=== PATIENT | female | born 1970 | race Caucasian/White ===

== ENCOUNTER 2024-12-19 21:10 | Inpatient (IN) ==
[2024-12-19 22:00] LABS: BASOPHILS % (AUTO) 0.1 %; HCT - HEMATOCRIT 39.4 % (37.0-47.0); HGB - HEMOGLOBIN 13.3 g/dL (12.0-16.0); LYMPHOCYTES # (AUTO) 0.9 10^3/uL (1.5-3.5); LYMPHOCYTES % (AUTO) 4.3 %; MEAN CORPUSCULAR HEMOGLOBIN 30.9 pg (27.0-31.0); MEAN CORPUSCULAR HGB CONC 33.8 g/dL (32.0-36.0); MEAN CORPUSCULAR VOLUME 91.4 fL (81.0-99.0); MEAN PLATELET VOLUME 9.4 fL (7.9-10.8); MONOCYTES # (AUTO) 1.2 10^3/uL (0.0-1.0); MONOCYTES % (AUTO) 5.4 %; NEUTROPHILS # (AUTO) 19.4 10^3/uL (1.5-6.6); NEUTROPHILS % (AUTO) 89.7 %; PLT - PLATELET COUNT 219 10^3/uL (130-450); RED BLOOD COUNT 4.31 10^6/uL (4.20-5.40); WHITE BLOOD COUNT 21.6 x10^3/uL (4.8-10.8)
[2024-12-19 22:16] LABS: ALBUMIN 4.3 g/dL (3.2-5.5); ALBUMIN/GLOBULIN RATIO 1.2 (1.0-2.2); ALKALINE PHOSPHATASE 63 IU/L (42-121); ALT ALANINE AMINOTRANSFERASE 9 IU/L (10-60); AST ASPARTATE AMINOTRANSFERASE 11 IU/L (10-42); BILIRUBIN,TOTAL 0.7 mg/dL (0.2-1.0); BUN - BLOOD UREA NITROGEN 34 mg/dL (6-20); CARBON DIOXIDE - CO2 22 mmol/L (21-32); CHLORIDE 99 mmol/L (101-111); CREATININE 1.3 mg/dL (0.6-1.3); GFR - MDRD 43 (>89); GLUCOSE 184 mg/dL (74-104); LIPASE < 10 U/L (11-82); POTASSIUM 3.7 mmol/L (3.5-4.5); SODIUM 134 mmol/L (135-145)
[2024-12-19 22:38] LABS: DIFFERENTIAL COMMENT MANUAL=AUTO DIFF; PLATELET ESTIMATE, MANUAL NORMAL (130-450,000) (NORMAL); PLATELET MORPHOLOGY NORMAL APPEARANCE (NORMAL); RBC MORPHOLOGY (MULTIPLE) NORMAL APPEARANCE (NORMAL)
[2024-12-19 23:45] LABS: BILIRUBIN,URINE SMALL (NEGATIVE); GLUCOSE, URINE (UA) NEGATIVE (NEGATIVE); KETONES,URINE (UA) TRACE mg/dL (NEGATIVE); LEUKOCYTE ESTERASE, URINE NEGATIVE (NEGATIVE); NITRITE,URINE NEGATIVE (NEGATIVE); OCCULT BLOOD,URINE LARGE (NEGATIVE); PROTEIN,URINE >=300 mg/dL (NEGATIVE); UROBILINOGEN,URINE 0.2 (NORMAL) E.U./dL (NORMAL)
[2024-12-19 23:46] LABS: CLARITY,URINE CLOUDY (CLEAR)
[2024-12-19 23:53] LABS: AMORPHOUS SEDIMENT,UR Rare /LPF; BACTERIA,URINE Many /HPF (None Seen); SQUAMOUS EPITHELIAL CELL,UR MANY Squamous (<= Few); WBC,URINE 0-3 /HPF (0-5)
[2024-12-19 23:54] LABS: CASTS, URINE 3-5 Granular Casts /LPF
--- NOTE | 2024-12-20 00:45 | ED Physician Documentation ---
History of Present Illness Stated complaint Stated Complaint: ABD PX Chief complaint Chief Complaint: Abd Pain Additonal information Additional information: 54-year-old presents with abdominal pain. Pain woke her from sleep 2 nights ago. Associated with nausea vomiting. Also reports episodes nonbloody Nonmucoid diarrhea earlier today. Past medical significant for section. [place] Coma Scale Assess Eye opening: Spontaneous Verbal response: Oriented Motor response: Obeys Commands Total score: 15 Review of Systems Constitutional Denies: Fever Eyes Denies: Pain Ears, nose, mouth, and throat Denies: Ear pain Cardiovascular Denies: Irregular heart rate or shortness of breath with exertion Respiratory Denies: Shortness of breath Gastrointestinal Reports: Abdominal pain, Nausea, Vomiting and Diarrhea Genitourinary Denies: Painful urination Musculoskeletal Denies: Back pain Integumentary/Breast Denies: Rash Neurological Denies: Headache Psychiatric Denies: Depression Endocrine Denies: Excessive urination Meds/Allgy Allergies Allergies Allergy/AdvReac Type Severity Reaction Status Date / Time amoxicillin (From Augmentin) Allergy Mild Nausea Verified 12/19/24 21:47 clavulanic acid (From Allergy Mild Nausea Verified 12/19/24 21:47 Augmentin) hydrocodone Allergy Mild Hives Verified 12/19/24 21:47 midazolam (From Versed) Allergy Mild Unknown Verified 12/19/24 21:47 morphine Allergy Mild Hallucinati Verified 12/19/24 21:47 ons sulfamethoxazole (From Allergy Mild Unknown Verified 12/19/24 21:47 Bactrim) tramadol Allergy Mild Hallucinati Verified 12/19/24 21:47 ons trimethoprim (From Bactrim) Allergy Mild Unknown Verified 12/19/24 21:47 acetaminophen (From Tylenol) AdvReac Mild Unknown Verified 12/19/24 21:47 [facility] Social History Social History Relationship: Do you feel safe in your home environment?: Yes Suffered physical, verbal, emotional, or financial abuse?: No POLST Patient has POLST: No Exam Constitutional normal general appearance, distress noted and average body habitus Patient laying in left lateral decubitus position. Appears very uncomfortable. HENMT normocephalic, head/scalp atraumatic, hearing grossly normal bilaterally and external ears normal Eyes PERRL, EOMs intact bilaterally and conjunctivae normal Neck/C-Spine visual inspection normal, trachea midline, cervical spine nontender and cervical full ROM noted Lymph no lymphadenopathy noted and no lymphedema noted Chest inspection of chest normal Respiratory breath sounds equal bilaterally Cardiovascular normal heart rate noted, regular rhythm noted, no gallop, no rub and no murmur Gastrointestinal Diffuse tenderness without guarding, rebound, rigidity. Decreased bowel sounds. Extremities normal to inspection Neurology bleach liquor maker II-XII intact, no movement abnormality noted and no focal motor deficit noted Results Vitals Vitals: Vital Signs - 24 hr 12/19/24 21:42 12/20/24 00:03 12/20/24 00:57 Temperature 36.7 C 100.6 C H Temperature Source Oral Oral Pulse Rate 110 H 95 Respiratory Rate 18 20 Blood Pressure 111/79 121/77 O2 Saturation 98 97 O2 Source Room air Room air Pain Intensity 8 8 12/20/24 01:30 12/20/24 02:30 12/20/24 03:28 Temperature 36.8 C Temperature Source Temporal Artery Scan Pulse Rate 94 97 Respiratory Rate 20 20 Blood Pressure 105/58 L 99/61 O2 Saturation 95 95 O2 Source Room air Pain Intensity 5 7 12/20/24 03:55 12/20/24 04:48 12/20/24 05:30 Temperature Temperature Source Pulse Rate 95 Respiratory Rate 16 Blood Pressure 97/65 O2 Saturation 94 O2 Source Room air Pain Intensity 8 5 12/20/24 05:55 Temperature Temperature Source Pulse Rate Respiratory Rate Blood Pressure O2 Saturation O2 Source Pain Intensity 7 Oxygen O2 Source Room air Labs Labs: Laboratory Tests 12/19/24 12/19/24 12/20/24 21:56 23:30 01:44 WBC 21.6 H RBC 4.31 Hgb 13.3 Hct 39.4 MCV 91.4 MCH 30.9 MCHC 33.8 RDW 13.0 Plt Count 219 MPV 9.4 Neut # (Auto) 19.4 H Lymph # (Auto) 0.9 L [place] # (Auto) 1.2 H Eos # (Auto) 0.0 Baso # (Auto) 0.0 Absolute Nucleated RBC 0.00 Band Neuts % (Manual) Not Reportable Abnorm Lymph % (Manual) Not Reportable Nucleated RBC % 0.0 Neutrophils # (Manual) Not Reportable Lymphocytes # (Manual) Not Reportable Monocytes # (Manual) Not Reportable Eosinophils # (Manual) Not Reportable Basophils # (Manual) Not Reportable Differential Comment MANUAL=AUTO DIFF Platelet Estimate NORMAL (130-450,000) Platelet Morphology NORMAL APPEARANCE RBC Morph Micro Appear NORMAL APPEARANCE PT 14.8 H INR 1.4 H Sodium 134 L Potassium 3.7 Chloride 99 L Carbon Dioxide 22 Anion Gap 13.0 BUN 34 H Creatinine 1.3 Estimated GFR (MDRD) 43 L Glucose 184 H Lactic Acid Calcium 10.0 Total Bilirubin 0.7 AST 11 ALT 9 L Alkaline Phosphatase 63 Total Protein 8.0 Albumin 4.3 Globulin 3.7 Albumin/Globulin Ratio 1.2 Lipase < 10 L Urine Color DARK YELLOW Urine Clarity CLOUDY Urine pH 6.0 Ur Specific [place] 1.025 Urine Protein >=300 H Urine Glucose (UA) NEGATIVE Urine Ketones TRACE Urine Occult Blood LARGE H Urine Nitrite NEGATIVE Urine Bilirubin SMALL H Urine Urobilinogen 0.2 (NORMAL) Ur Leukocyte Esterase NEGATIVE Urine RBC 6-10 H Urine WBC 0-3 Ur Squamous Epith Cells MANY Squamous H Amorphous Sediment Rare Urine Bacteria Many H Urine Casts 3-5 Granular Casts Ur Microscopic Review INDICATED Urine Culture Comments NOT INDICATED 12/20/24 01:53 WBC RBC Hgb Hct MCV MCH MCHC RDW Plt Count MPV Neut # (Auto) Lymph # (Auto) [place] # (Auto) Eos # (Auto) Baso # (Auto) Absolute Nucleated RBC Band Neuts % (Manual) Abnorm Lymph % (Manual) Nucleated RBC % Neutrophils # (Manual) Lymphocytes # (Manual) Monocytes # (Manual) Eosinophils # (Manual) Basophils # (Manual) Differential Comment Platelet Estimate Platelet Morphology RBC Morph Micro Appear PT INR Sodium Potassium Chloride Carbon Dioxide Anion Gap BUN Creatinine Estimated GFR (MDRD) Glucose Lactic Acid 2.0 Calcium Total Bilirubin AST ALT Alkaline Phosphatase Total Protein Albumin Globulin Albumin/Globulin Ratio Lipase Urine Color Urine Clarity Urine pH Ur Specific [place] Urine Protein Urine Glucose (UA) Urine Ketones Urine Occult Blood Urine Nitrite Urine Bilirubin Urine Urobilinogen Ur Leukocyte Esterase Urine RBC Urine WBC Ur Squamous Epith Cells Amorphous Sediment Urine Bacteria Urine Casts Ur Microscopic Review Urine Culture Comments PD Medical Decision Making ED course Complexity details: reviewed old records, reviewed results, re-evaluated patient, considered differential, d/w patient and d/w bank consultant ED course: 54-year-old presents with abdominal pain. Low-level fever on arrival here. Lab work demonstrates significant leukocytosis. Patient with diffuse abdominal tenderness without indications peritonitis. CT obtained demonstrates perforated appendicitis with phlegmon with significant involvement of surrounding structures including ureter and external iliac artery. Discussed with Dr. Ramsey, on-call general surgery who on review of the case believes patient would benefit from higher level of care. Additionally there are no beds available at this facility at this time. Have ordered Levo and Flagyl for intra-abdominal coverage. Patient given doses fentanyl, IV hydration. Have requested transfer to next available appropriate level of care however have also discussed with Dr. Lindsay, the daytime surgeon for today who will evaluate. Will be signing out to the oncoming physician, please see their documentation for further detail Discharge Plan Discharge Patient Disposition: 02 Transfer Acute Care Hosp Clinical Impression: Acute appendicitis Qualifiers: Acute appendicitis type: with localized peritonitis Appendicitis gangrene presence: unspecified whether gangrene present Appendicitis perforation presence: with perforation Appendicitis abscess presence: without abscess Qualified Code(s): K35.32 - Acute appendicitis with perforation, localized peritonitis, and gangrene, without abscess Stand Alone Forms: PCP List
[2024-12-20] MEDS: ONDANSETRON 4 MG/2 ML VIAL IVP STA ×2 (00:57→07:31)
[2024-12-20] MEDS: fentaNYL 100 MCG/2 ML VIAL IVP STA (00:57)
[2024-12-20] MEDS ORDERED: iohexoL-300 100 ML VIAL ONE (00:59)
--- NOTE | 2024-12-20 02:02 | CT Report ---
PROCEDURE: CT Abdomen/Pelvis W INDICATIONS: abd pain CONTRAST: 100 ML OMNI 300 TECHNIQUE: After the administration of intravenous contrast, a CT scan of the abdomen and pelvis was performed. Images were recorded and evaluated at appropriate window settings. Reformats: coronal and sagittal. F or radiation dose reduction, the following was used: automated exposure control, adjustment of mA and /or kV according to patient size. COMPARISON: None. FINDINGS: Image quality: Diagnostic. Peritoneum: No pneumoperitoneum or ascites. Bones: No acute osseous abnormality. Lower Thorax: Mild cardiomegaly. Small hiatal hernia. Liver: Normal in size and contour. Gallbladder: No wall thickening, stones, or pericholecystic edema. Biliary tree: No intrahepatic or extrahepatic biliary duct dilatation. Pancreas: No acute abnormality. Spleen: Normal in size. Kidneys: Symmetric enhancement without hydronephrosis or obstructive urolithiasis. Adrenals: No nodularity. Bladder: No abnormal wall thickening. : No acute abnormality. Stomach: No focal masses or abnormal distension. Bowel: Normal bowel wall diameter without obstruction. Dilated, fluid-filled appendix measuring up to 1.3 cm in maximum diameter (2/118; 4/48). Extensive fat stranding is present around the midportion o f the appendix with an ill-defined 2.2 cm long collection that perforates inferiorly from the midport ion of the appendiceal lumen (4/50). This collection is directly anterior to the right external iliac artery and ureter (2/107-121). There is adjacent peritoneal fat stranding. The adjacent small bowel is fluid-filled. Small-volume fluid in the colon. Lymph Nodes: No retroperitoneal, mesenteric, or inguinal lymphadenopathy. Nonenlarged mesenteric node s are present adjacent to the appendiceal perforation. Vascular: No abdominal aortic aneurysm. The visualized arterial vasculature is patent. Soft tissues: No acute abnormality. IMPRESSION: 1.Acute, complicated appendicitis with focal perforation at the midportion of the appendix, and an ad jacent small phlegmon. Please note the proximity of the phlegmon to the right external iliac artery a nd ureter. 2.Likely reactive enteritis and colitis. These findings were communicated to the ordering provider, Dr Valencia, by Elroy Guevara MD, on 2024 at 1:59 AM. Reviewed by: Elroy Guevara MD on 12/20/2024 2:01 AM PST Approved by: Elroy Guevara MD on 12/20/2024 2:01 AM PST Station ID: [id number]
[2024-12-20 02:04] LABS: INR 1.4 (0.8-1.2); PT - PROTHROMBIN TIME 14.8 secs (9.9-12.6)
[2024-12-20] MEDS: iohexoL-300 100 ML VIAL IVP ONE (02:29)
[2024-12-20] MEDS: levoFLOXacin 500 MG/100 ML 500 MG/100 ML BAG IV STA (02:31)
[2024-12-20] MEDS: metroNIDAZOLE 500 MG/100 ML 500 MG/100 ML BAG IV ONE (02:32)
[2024-12-20] MEDS: fentaNYL 100 MCG/2 ML VIAL IVP PRN (03:55)
--- NOTE | 2024-12-20 09:28 | ED Physician Documentation ---
ED Addendum Addendum Addendum: The patient had been seen overnight with appendicitis with perforation and a local phlegmon but no abscess. Initial impression from general surgery, Dr. Ramsey, was to try to transfer the patient. We have been unsuccessful so far over many hours. Reconsultation with general surgery again this morning, Dr. Connors, to get direction on treatment. Dr. Connors states she can admit the patient for IV antibiotics and treatment here rather than transfer. Disposition the patient is admitted to general surgery in stable condition Diagnoses: 1. Acute appendicitis with local perforation, no abscess, local peritonitis Discharge Plan Discharge Patient Disposition: 66 [facility] DC/Xfer Clinical Impression: Acute appendicitis Qualifiers: Acute appendicitis type: with localized peritonitis Appendicitis gangrene presence: unspecified whether gangrene present Appendicitis perforation presence: with perforation Appendicitis abscess presence: without abscess Qualified Code(s): K35.32 - Acute appendicitis with perforation, localized peritonitis, and gangrene, without abscess Print Language: Divehi
[2024-12-20] MEDS: LACTATED RINGERS 1,000 ML IV SCH (10:36)
[2024-12-20] MEDS: ACETAMINOPHEN 1,000 MG/100 ML 1,000 MG/100 ML BAG IV SCH (11:14)
[2024-12-20] MEDS: KETOROLAC 30 MG/ML VIAL IVP SCH (11:17)
[2024-12-20] MEDS: ENOXAPARIN 40 MG/0.4 ML SYRINGE SUBQ SCH (11:17)
--- NOTE | 2024-12-20 11:17 | PHARMACY PROGRESS NOTE ---
Best Possible Medication History Admit Date and Time: 12/20/24 [id number] Home Medications Medication Instructions Recorded Confirmed Type acyclovir 400 mg tablet 400 mg PO DAILY 12/20/24 12/20/24 History lisinopril 20 1 tab PO DAILY 12/20/24 12/20/24 History mg-hydrochlorothiazide 25 mg tablet Processed by: Nursing Medications reviewed in ED?: Yes Medication History completed: Yes Patient Interview: Completed Secondary Source(s): Pharmacy records and Insurance records [facility] Statement: As the person ultimately responsible for medication therapy, providers are able to order a medication from an existing home medication list in [facility] via the "Reconcile Routine" prior to Confirmation of that medication by application support technician. Such practice is discouraged except when the physician, in their clinical judgment, deems that a medical need exists for a medication without regard to previous use.
[2024-12-20] MEDS: CIPROFLOXACIN 400 MG/200 ML 400 MG/200 ML BAG IV SCH (17:33)
[2024-12-20] MEDS: SODIUM CHLORIDE FLUSH 0.9% 10 ML SYRINGE IVP SCH (17:33)
--- NOTE | 2024-12-20 17:33 | HISTORY & PHYSICAL EXAMINATION ---
History of Present Illness Admitted From Admitted From:: History of Present Illness HPI Comment/Other: 54F with 4d progressively worsening abdominal pain associated with emesis and diarrhea and PO intolerance, starting Friday night. She last tried to eat solid food Friday night. Friday and ongoing she tried to sip liquids, the nausea continued and she reports that the emesis and diarrhea slowed down after "nothing was left". +subjective fevers and chills. +dysuria. No prior similar episodes. Meds/Allgy Home Medications Ambulatory Orders Medication Instructions Recorded Confirmed acyclovir 400 mg tablet 400 mg PO DAILY 12/20/24 12/20/24 cetirizine 10 mg capsule (All Day 10 mg PO BID PRN allergy symptoms 12/20/24 12/20/24 Allergy (cetirizine)) lisinopril 20 1 tab PO DAILY 12/20/24 12/20/24 mg-hydrochlorothiazide 25 mg tablet Allergies Allergies Allergy/AdvReac Type Severity Reaction Status Date / Time amoxicillin (From Augmentin) Allergy Mild Nausea Verified 12/19/24 21:47 clavulanic acid (From Allergy Mild Nausea Verified 12/19/24 21:47 Augmentin) hydrocodone Allergy Mild Hives Verified 12/19/24 21:47 midazolam (From Versed) Allergy Mild Unknown Verified 12/19/24 21:47 morphine Allergy Mild Hallucinati Verified 12/19/24 21:47 ons sulfamethoxazole (From Allergy Mild Unknown Verified 12/19/24 21:47 Bactrim) tramadol Allergy Mild Hallucinati Verified 12/19/24 21:47 ons trimethoprim (From Bactrim) Allergy Mild Unknown Verified 12/19/24 21:47 acetaminophen (From Tylenol) AdvReac Mild Unknown Verified 12/19/24 21:47 [facility] Medical History Medical History (Updated 12/20/24 @ 17:21 by Marilee Connors DO) HSV infection HTN (hypertension) History of acute pancreatitis (~2017) 2/2 tylenol Surgical History Surgical History (Updated 12/20/24 @ 17:21 by Marilee Connors DO) History of tonsillectomy History of ovarian cystectomy History of tubal ligation History of Social History Social History Smoking Status: Current every day smoker Patient requests smoking cessation consult: No Relationship: Level: Independent Do you feel safe in your home environment?: Yes Suffered physical, verbal, emotional, or financial abuse?: No POLST Patient has POLST: No Review of Systems Status of ROS: 10 or more systems reviewed and unremarkable except as noted in history and below Exam Exam Presenting Vitals HR 110 BP 111/79 O2sat 98 T 36.7 --> 100.6 Constitutional normal general appearance and distress noted (pain) (mild) HENMT normocephalic Eyes PERRL and EOMs intact bilaterally Neck/C-Spine visual inspection normal Respiratory normal respiratory effort Cardiovascular normal heart rate noted Gastrointestinal abdomen soft to palpation, tender to palpation and distended generalized moderate ttp with focal peritonitis in the RLQ, mildly distended. +ttp right flank Extremities normal to inspection Psychiatry mental status grossly normal and oriented x3 Skin skin color normal Sepsis Event Note (H) Evaluation Current Stage of Sepsis: Sepsis Possible source of Sepsis: positive GI tract/intra-abdominal Confirmed Source and Organism (if known) of Sepsis: perforated appendicitis Sepsis Criteria Sepsis Criteria: Recorded Heart Rate greater than 90 bpm, WBC count greater than 10% bands and WBC count greater than 12,000 or less than 4000 Conclusion/Plan Problem List (1) Perforated appendicitis: Plan: 54yoF with acute perforated appendicitis, with phlegmon abutting the right ureter and external iliac artery. Presenting HR 110 and WBC 21, soft BP down to 95/57 while in the ED overnight. Discussed nature of disease with patient including the complicated nature of her findings and increased risk of early surgical intervention in her case: risks include bowel resection, open surgery, high chance of infection/leak/poor wound healing, and in her case damage to surrounding structures to include ureter and right external iliac vessel. Recommend admission with IV antibiotics and close monitoring, followed by (if abx successful), interval appendectomy. Did also discuss that if abx unsuccessful, will ultimately need operation this admission. - Admit to inpatient status - IV cipro/flagyl - NPO - sips/chips OK - LR @ 125 - IV multimodal pain control - Trend CBC/BMP daily - IS, SCDs, Lovenox, ambulation Marilee Connors DO, FACS General Surgeon, [facility] (2) HSV infection: Plan: Continue ppx acyclovir (3) HTN (hypertension): Plan: hold home antihypertensive Plan Marilee Connors DO, FACS General Surgeon, [facility] Lab Results 12/19/24 21:56 12/19/24 21:56 Diagnostic Imaging Results Diagnostic Imaging Results: positive Read contemporaneously Diagnostic Imaging Results Comments: 12/20/24 PROCEDURE: CT Abdomen/Pelvis W INDICATIONS: abd pain CONTRAST: 100 ML OMNI 300 TECHNIQUE: After the administration of intravenous contrast, a CT scan of the abdomen and pelvis was performed. Images were recorded and evaluated at appropriate window settings. Reformats: coronal and sagittal. For radiation dose reduction, the following was used: automated exposure control, adjustment of mA and/or kV according to patient size. COMPARISON: None. FINDINGS: Image quality: Diagnostic. Peritoneum: No pneumoperitoneum or ascites. Bones: No acute osseous abnormality. Lower Thorax: Mild cardiomegaly. Small hiatal hernia. Liver: Normal in size and contour. Gallbladder: No wall thickening, stones, or pericholecystic edema. Biliary tree: No intrahepatic or extrahepatic biliary duct dilatation. Pancreas: No acute abnormality. Spleen: Normal in size. Kidneys: Symmetric enhancement without hydronephrosis or obstructive urolithiasis. Adrenals: No nodularity. Bladder: No abnormal wall thickening. : No acute abnormality. Stomach: No focal masses or abnormal distension. Bowel: Normal bowel wall diameter without obstruction. Dilated, fluid-filled appendix measuring up to 1.3 cm in maximum diameter (2/118; 4/48). Extensive fat stranding is present around the midportion of the appendix with an ill-defined 2.2 cm long collection that perforates inferiorly from the midportion of the appendiceal lumen (4/50). This collection is directly anterior to the right external iliac artery and ureter (2/107-121). There is adjacent peritoneal fat stranding. The adjacent small bowel is fluid-filled. Small-volume fluid in the colon. Lymph Nodes: No retroperitoneal, mesenteric, or inguinal lymphadenopathy. Nonenlarged mesenteric nodes are present adjacent to the appendiceal perforation. Vascular: No abdominal aortic aneurysm. The visualized arterial vasculature is patent. Soft tissues: No acute abnormality. IMPRESSION: 1.Acute, complicated appendicitis with focal perforation at the midportion of the appendix, and an adjacent small phlegmon. Please note the proximity of the phlegmon to the right external iliac artery and ureter. 2.Likely reactive enteritis and colitis. These findings were communicated to the ordering provider, Dr Valencia, by Elroy Guevara MD, on 12/20/2024 at 1:59 AM. Reviewed by: Elroy Guevara MD on 12/20/2024 2:01 AM PST
[2024-12-20] MEDS: metroNIDAZOLE 500 MG/100 ML 500 MG/100 ML BAG IV SCH (19:04)
[2024-12-20] MEDS: ONDANSETRON 4 MG/2 ML VIAL IVP PRN (19:11)
[2024-12-21] MEDS ORDERED: ONDANSETRON 4 MG/2 ML VIAL IVP PRN (02:08)
[2024-12-21 04:34] LABS: BASOPHILS % (AUTO) 0.1 %; HCT - HEMATOCRIT 32.4 % (37.0-47.0); HGB - HEMOGLOBIN 10.8 g/dL (12.0-16.0); LYMPHOCYTES # (AUTO) 0.7 10^3/uL (1.5-3.5); LYMPHOCYTES % (AUTO) 4.4 %; MEAN CORPUSCULAR HEMOGLOBIN 30.7 pg (27.0-31.0); MEAN CORPUSCULAR HGB CONC 33.3 g/dL (32.0-36.0); MEAN PLATELET VOLUME 9.9 fL (7.9-10.8); MONOCYTES # (AUTO) 0.8 10^3/uL (0.0-1.0); MONOCYTES % (AUTO) 4.8 %; NEUTROPHILS # (AUTO) 14.3 10^3/uL (1.5-6.6); NEUTROPHILS % (AUTO) 90.3 %; PLT - PLATELET COUNT 173 10^3/uL (130-450); RED BLOOD COUNT 3.52 10^6/uL (4.20-5.40); RED CELL DISTRIBUTION WIDTH 13.2 % (12.0-15.0); WHITE BLOOD COUNT 15.9 x10^3/uL (4.8-10.8)
[2024-12-21 04:49] LABS: CALCIUM 9.5 mg/dL (8.5-10.3); CREATININE 2.2 mg/dL (0.6-1.3); MAGNESIUM 1.9 mg/dL (1.7-2.3); PHOSPHORUS 2.8 mg/dL (2.5-5.0); POTASSIUM 2.8 mmol/L (3.5-4.5)
[2024-12-21] MEDS: CIPROFLOXACIN 400 MG/200 ML 400 MG/200 ML BAG IV SCH (05:25)
[2024-12-21] MEDS: HYDROmorphone 1 MG/ML CARPUJECT IVP PRN (08:08)
--- NOTE | 2024-12-21 08:25 | PROVIDER PROGRESS NOTE ---
Subjective General Admit Date: 12/20/24 Other Other Information/Narrative: Slight improvement in pain and nausea by yesterday evening, requested clear liquids. Tolerated some sips, did use zofran x3. This AM has increased bloating and diarrhea. Though she states that the scheduled toradol and PRN dilaudid (x1) are adequately covering her pain. Blood cx + for Bacteroides fragilis. WBC 21 --> 15. Afebrile, HD stable. CHRISTIAN with Cr 1.3 -> 2.2; K 2.8. ---- given 1L LR and 40meqK with repeat BMP this afternoon. May need to place meyer. Review of Systems Status of ROS: 10 or more systems reviewed and unremarkable except as noted in history and below Exam Exam Temp Pulse Resp BP Pulse Ox 36.3 C L 88 16 114/72 97 12/21/24 08:14 12/21/24 08:14 12/21/24 08:14 12/21/24 08:14 12/21/24 08:14 Constitutional normal general appearance and no apparent distress (pain) HENMT normocephalic Eyes PERRL and EOMs intact bilaterally Neck/C-Spine visual inspection normal Respiratory normal respiratory effort Cardiovascular normal heart rate noted Gastrointestinal abdomen soft to palpation, tender to palpation and distended generalized moderate ttp, the focal peritonitis in the RLQ is improved since admission. Distension is increased, but soft. Extremities normal to inspection Psychiatry mental status grossly normal and oriented x3 Skin skin color normal ABX Reporting Has patient been on IV antibiotics over the past 48 hours?: Yes Impression/Plan Problem List (1) Perforated appendicitis: Plan: 54yoF with acute perforated appendicitis + bacteroides bacteremia, with phlegmon abutting the right ureter and external iliac artery. Admitted with plan of IV antibiotics with interval appendectomy (6-8weeks after discharge). If does not clinically respond to IV abx, will need to repeat scan for possible IR drainage vs surgical intervention. HD2. WBC improved 22 --> 15. Pain and nausea improved from admission, though increased bloating and diarrhea. - IV cipro/flagyl for Bacteroides fragilis bacteremia - follow cx results for susceptibilities - Clear liquids as tolerated - 1L LR bolus + 40meq K --> PM BMP for CHRISTIAN + hypokalemia (may need to place meyer if not improving) - LR @ 125 - IV multimodal pain control (no tylenol 2/2 history of tylenol-induced pancreatitis) - Trend CBC/BMP daily - IS, SCDs, Lovenox, ambulation Marilee Connors DO, FACS General Surgeon, [facility] (2) Bacteremia due to Gram-negative bacteria: (3) CHRISTIAN (acute kidney injury): (4) HSV infection: Plan: Continue ppx acyclovir (5) HTN (hypertension): Plan: hold home antihypertensive Plan Marilee Connors DO, FACS General Surgeon, [facility]
[2024-12-21] MEDS: ACYCLOVIR 200 MG CAPSULE PO SCH (08:45)
[2024-12-21] MEDS: LACTATED RINGERS 1,000 ML IV ONE (08:47)
[2024-12-21] MEDS: POTASSIUM CHLORIDE INJ 40 MEQ in SODIUM CHLORIDE 0.9% 500 ML IV ONE ×2 (09:19→17:16)
[2024-12-21] MEDS: POTASSIUM CHLOR 10 MEQ/100 ML 10 MEQ/100 ML BAG IV SCH ×2 (09:51→18:39)
[2024-12-21 15:31] LABS: CALCIUM 9.7 mg/dL (8.5-10.3); CREATININE 1.8 mg/dL (0.6-1.3); POTASSIUM 3.3 mmol/L (3.5-4.5)
[2024-12-21] MEDS: PROCHLORPERAZINE 10 MG/2 ML VIAL IVP PRN (17:13)
[2024-12-22] MEDS: HYDROmorphone 0.5 MG/0.5 ML SYRINGE IVP PRN (03:21)
[2024-12-22 05:22] LABS: BASOPHILS % (AUTO) 0.1 %; EOSINOPHILS % (AUTO) 0.1 %; HGB - HEMOGLOBIN 10.5 g/dL (12.0-16.0); LYMPHOCYTES # (AUTO) 0.8 10^3/uL (1.5-3.5); LYMPHOCYTES % (AUTO) 5.2 %; MEAN CORPUSCULAR HEMOGLOBIN 31.4 pg (27.0-31.0); MEAN CORPUSCULAR HGB CONC 33.9 g/dL (32.0-36.0); MEAN CORPUSCULAR VOLUME 92.8 fL (81.0-99.0); MEAN PLATELET VOLUME 9.8 fL (7.9-10.8); MONOCYTES # (AUTO) 1.1 10^3/uL (0.0-1.0); MONOCYTES % (AUTO) 7.7 %; NEUTROPHILS # (AUTO) 12.7 10^3/uL (1.5-6.6); NEUTROPHILS % (AUTO) 86.4 %; PLT - PLATELET COUNT 182 10^3/uL (130-450); RED BLOOD COUNT 3.34 10^6/uL (4.20-5.40); WHITE BLOOD COUNT 14.6 x10^3/uL (4.8-10.8)
[2024-12-22 05:32] LABS: CREATININE 1.4 mg/dL (0.6-1.3); MAGNESIUM 1.9 mg/dL (1.7-2.3); PHOSPHORUS 2.6 mg/dL (2.5-5.0); POTASSIUM 3.4 mmol/L (3.5-4.5)
[2024-12-22] MEDS: POTASSIUM CHLORIDE INJ 40 MEQ in SODIUM CHLORIDE 0.9% 500 ML IV ONE (07:26)
[2024-12-22] MEDS: POTASSIUM CHLOR 10 MEQ/100 ML 10 MEQ/100 ML BAG IV SCH (07:39)
--- NOTE | 2024-12-22 12:59 | PROVIDER PROGRESS NOTE ---
Subjective General Admit Date: 12/20/24 Other Other Information/Narrative: Improved incrementally more today. Still nauseated, but taking some sips of clears. Diarrhea persists. But pain is better controlled, sitting up and visiting with a friend in better spirits. WBC down 15 to 14. CHRISTIAN improving with 1L bolus yesterday - Cr 2.2 to 1.8 to 1.4. Review of Systems Status of ROS: 10 or more systems reviewed and unremarkable except as noted in history and below Exam Exam Temp Pulse Resp BP Pulse Ox 36.3 C L 88 16 114/72 97 12/21/24 08:14 12/21/24 08:14 12/21/24 08:14 12/21/24 08:14 12/21/24 08:14 Constitutional normal general appearance and no apparent distress (pain) HENMT normocephalic Eyes PERRL and EOMs intact bilaterally Neck/C-Spine visual inspection normal Respiratory normal respiratory effort Cardiovascular normal heart rate noted Gastrointestinal abdomen soft to palpation, tender to palpation and distended RLQ ttp, no peritonitis. distended but soft. Extremities normal to inspection Psychiatry mental status grossly normal and oriented x3 Skin skin color normal ABX Reporting Has patient been on IV antibiotics over the past 48 hours?: Yes Impression/Plan Problem List (1) Perforated appendicitis: Plan: 54yoF with acute perforated appendicitis + bacteroides bacteremia, with phlegmon abutting the right ureter and external iliac artery. Admitted with plan of IV antibiotics with interval appendectomy (6-8weeks after discharge). If does not clinically respond to IV abx, will need to repeat scan for possible IR drainage vs surgical intervention. HD3. WBC improved to 14. Pain and nausea improved from admission, though still with bloating and diarrhea. CHRISTIAN improving. - IV cipro/flagyl for Bacteroides fragilis bacteremia - follow cx results for susceptibilities - Clear liquids as tolerated - 40meq - LR @ 125 - IV multimodal pain control (no tylenol 2/2 history of tylenol-induced pancreatitis) - Trend CBC/BMP daily - IS, SCDs, Lovenox, ambulation Marilee Connors DO, FACS General Surgeon, [facility] (2) Bacteremia due to Gram-negative bacteria: (3) CHRISTIAN (acute kidney injury): (4) HSV infection: Plan: Continue ppx acyclovir (5) HTN (hypertension): Plan: hold home antihypertensive Plan Marilee Connors DO, JAYLYN General Surgeon, [facility]
[2024-12-22] MEDS: SODIUM CHLORIDE FLUSH 0.9% 10 ML SYRINGE IVP PRN (21:12)
[2024-12-23 06:00] LABS: BASOPHILS % (AUTO) 0.2 %; EOSINOPHILS # (AUTO) 0.1 10^3/uL (0.0-0.7); EOSINOPHILS % (AUTO) 0.5 %; HCT - HEMATOCRIT 31.2 % (37.0-47.0); HGB - HEMOGLOBIN 10.2 g/dL (12.0-16.0); LYMPHOCYTES # (AUTO) 1.1 10^3/uL (1.5-3.5); LYMPHOCYTES % (AUTO) 9.3 %; MEAN CORPUSCULAR HEMOGLOBIN 30.6 pg (27.0-31.0); MEAN CORPUSCULAR HGB CONC 32.7 g/dL (32.0-36.0); MEAN CORPUSCULAR VOLUME 93.7 fL (81.0-99.0); MEAN PLATELET VOLUME 9.7 fL (7.9-10.8); MONOCYTES # (AUTO) 1.2 10^3/uL (0.0-1.0); MONOCYTES % (AUTO) 10.3 %; NEUTROPHILS # (AUTO) 9.6 10^3/uL (1.5-6.6); NEUTROPHILS % (AUTO) 79.2 %; PLT - PLATELET COUNT 206 10^3/uL (130-450); RED BLOOD COUNT 3.33 10^6/uL (4.20-5.40); RED CELL DISTRIBUTION WIDTH 13.1 % (12.0-15.0); WHITE BLOOD COUNT 12.1 x10^3/uL (4.8-10.8)
[2024-12-23 06:17] LABS: CREATININE 1.1 mg/dL (0.6-1.3); MAGNESIUM 1.8 mg/dL (1.7-2.3); PHOSPHORUS 2.9 mg/dL (2.5-5.0); POTASSIUM 3.4 mmol/L (3.5-4.5)
--- NOTE | 2024-12-23 15:05 | PROVIDER PROGRESS NOTE ---
Subjective Subjective Subjective: feeling ok. lots of bloating today. no nausea. Current Medications Current Medications Current Medications: Current Medications Generic Name Dose Route Start Last Admin Trade Name Freq PRN Reason Stop Dose Admin Acyclovir 400 mg 12/21/24 09:00 12/23/24 09:27 Acyclovir 200 Mg Capsule PO 400 mg DAILY JONATHAN Administration Enoxaparin Sodium 40 mg 12/20/24 11:04 12/23/24 09:38 Enoxaparin 40 Mg/0.4 Ml Syringe SUBQ Not Given DAILY JONATHAN Hydromorphone HCl 0.5 mg 12/22/24 00:52 12/23/24 09:26 Hydromorphone 0.5 Mg/0.5 Ml Syringe IVP 0.5 mg Q2H PRN Administration Severe Pain (Level 7-10) Lactated Ringer's 1,000 mls @ 125 mls/hr 12/20/24 11:00 12/23/24 10:28 Lr IV 125 mls/hr .Q8H JONATHAN Infusion Metronidazole 500 mg in 100 mls @ 100 mls/hr 12/20/24 17:15 12/23/24 10:27 Flagyl 500 Mg/100 Ml IV Infused Q8H JONATHAN Infusion Ciprofloxacin 400 mg in 200 mls @ 150 mls/hr 12/21/24 05:30 12/23/24 07:47 Cipro 400 Mg/200 Ml IV Infused Q12H JONATHAN Infusion Ketorolac Tromethamine 30 mg 12/20/24 12:00 12/23/24 12:10 Ketorolac 30 Mg/Ml Vial IVP 12/25/24 11:59 30 mg Q6HR JONATHAN Administration Ondansetron HCl 4 mg 12/20/24 11:04 12/21/24 08:07 Ondansetron 4 Mg/2 Ml Vial IVP 4 mg Q6H PRN Administration Nausea / Vomiting Prochlorperazine Edisylate 10 mg 12/21/24 13:17 12/23/24 09:26 Prochlorperazine 10 Mg/2 Ml Vial IVP 10 mg Q6HR PRN Administration Nausea / Vomiting Sodium Chloride 10 ml 12/20/24 17:00 12/23/24 09:26 Sodium Chloride Flush 0.9% 10 Ml Syringe IVP 10 ml 0100,0900,1700 JONATHAN Administration Sodium Chloride 10 ml 12/20/24 11:04 12/22/24 21:12 Sodium Chloride Flush 0.9% 10 Ml Syringe IVP 10 ml PRN PRN Administration NEEDED PER PROVIDER ORDERS Objective Vital Signs/Intake & Output Reviewed Vital Signs: Yes Vital Signs: Vital Signs x48h Temp Pulse Resp BP Pulse Ox 12/23/24 10:24 36.5 C 76 20 142/79 H 98 Intake & Output: Intake & Output 12/20/24 12/21/24 12/22/24 12/23/24 23:59 23:59 23:59 23:59 Intake Total 1734 / 1734 5063 / 5063 4888 / 4888 2056 Output Total 0 / 0 Balance 1734 / 1734 5063 / 5063 4888 / 4888 2056 Weight (kg) 88 kg Objective General Appearance: positive No acute distress and Alert Eyes Bilateral: positive PERRL, EOMI and No scleral icterus Respiratory: positive No respiratory distress Abdomen: positive Other (pt standing in room. abdominal exam not done) Neurologic/Psychiatric: positive Oriented x3 Lab Results 12/23/24 05:24 12/23/24 05:24 Other Labs: Lab Results x24hrs 12/23/24 Range/Units 05:24 WBC 12.1 H (4.8-10.8) x10^3/uL RBC 3.33 L (4.20-5.40) 10^6/uL Hgb 10.2 L (12.0-16.0) g/dL Hct 31.2 L (37.0-47.0) % MCV 93.7 (81.0-99.0) fL MCH 30.6 (27.0-31.0) pg MCHC 32.7 (32.0-36.0) g/dL RDW 13.1 (12.0-15.0) % Plt Count 206 (130-450) 10^3/uL MPV 9.7 (7.9-10.8) fL Neut # (Auto) 9.6 H (1.5-6.6) 10^3/uL Lymph # (Auto) 1.1 L (1.5-3.5) 10^3/uL [place] # (Auto) 1.2 H (0.0-1.0) 10^3/uL Eos # (Auto) 0.1 (0.0-0.7) 10^3/uL Baso # (Auto) 0.0 (0.0-0.1) 10^3/uL Absolute Nucleated RBC 0.00 x10^3/uL Nucleated RBC % 0.0 /100WBC Sodium 134 L (135-145) mmol/L Potassium 3.4 L (3.5-4.5) mmol/L Chloride 107 (101-111) mmol/L Carbon Dioxide 20 L (21-32) mmol/L Anion Gap 7.0 (6-13) BUN 33 H (6-20) mg/dL Creatinine 1.1 (0.6-1.3) mg/dL Estimated GFR (MDRD) 52 L (>89) Glucose 108 H (74-104) mg/dL Calcium 9.0 (8.5-10.3) mg/dL Phosphorus 2.9 (2.5-5.0) mg/dL Magnesium 1.8 (1.7-2.3) mg/dL Sepsis Event Note (H) Evaluation Current Stage of Sepsis: Sepsis Possible source of Sepsis: positive GI tract/intra-abdominal Sepsis Criteria Sepsis Criteria: Recorded Heart Rate greater than 90 bpm, WBC count greater than 10% bands and WBC count greater than 12,000 or less than 4000 Assessment/Plan Problem List (1) Perforated appendicitis: Impression: slowly improving. continue present care. (2) Bacteremia due to Gram-negative bacteria: (3) CHRISTIAN (acute kidney injury): (4) HSV infection: (5) HTN (hypertension):
[2024-12-24 06:04] LABS: BASOPHILS % (AUTO) 0.3 %; HCT - HEMATOCRIT 28.4 % (37.0-47.0)
[2024-12-24 06:08] LABS: HGB - HEMOGLOBIN 9.8 g/dL (12.0-16.0); LYMPHOCYTES % (AUTO) 10.5 %; MEAN CORPUSCULAR HEMOGLOBIN 31.6 pg (27.0-31.0); MEAN CORPUSCULAR HGB CONC 34.5 g/dL (32.0-36.0); MEAN CORPUSCULAR VOLUME 91.6 fL (81.0-99.0); MEAN PLATELET VOLUME 9.5 fL (7.9-10.8); MONOCYTES % (AUTO) 12.2 %; NEUTROPHILS % (AUTO) 75.3 %; PLT - PLATELET COUNT 210 10^3/uL (130-450); RED CELL DISTRIBUTION WIDTH 13.1 % (12.0-15.0); WHITE BLOOD COUNT 10.9 x10^3/uL (4.8-10.8)
[2024-12-24 06:11] LABS: ABNORMAL LYMPHS % (MANUAL) 0 %; BAND NEUTROPHILS % (MANUAL) 0 %
[2024-12-24 06:22] LABS: CALCIUM 8.6 mg/dL (8.5-10.3); MAGNESIUM 1.6 mg/dL (1.7-2.3); PHOSPHORUS 3.7 mg/dL (2.5-5.0); POTASSIUM 3.3 mmol/L (3.5-4.5)
[2024-12-24 06:40] LABS: DIFFERENTIAL COMMENT MANUAL DIFFERENTIAL; LYMPHOCYTES # (MANUAL) 1.5 10^3/uL (1.5-3.5); LYMPHOCYTES % (MANUAL) 14 %; NEUTROPHILS # (MANUAL) 8.4 10^3/uL (1.5-6.6); PLATELET ESTIMATE, MANUAL NORMAL (130-450,000) (NORMAL); PLATELET MORPHOLOGY NORMAL APPEARANCE (NORMAL); RBC MORPHOLOGY (MULTIPLE) NORMAL APPEARANCE (NORMAL); WBC MORPHOLOGY (MULTIPLE) NORMAL APPEARANCE (NORMAL)
[2024-12-24] MEDS: MAGNESIUM SULFATE 2 GRAM 2 GM/50 ML BAG IV ONE (09:50)
[2024-12-24] MEDS: POTASSIUM CHLOR 10 MEQ/100 ML 10 MEQ/100 ML BAG IV SCH (10:57)
--- NOTE | 2024-12-24 15:43 | PROVIDER PROGRESS NOTE ---
Subjective General Admit Date: 12/20/24 Other Other Information/Narrative: Tolerating clears but nausea with attempted solids. Pain was better yesterday but worse today. HDN/AF. WBC normal today, creatinine continues to improve back to baseline. Review of Systems Status of ROS: 10 or more systems reviewed and unremarkable except as noted in history and below Exam Exam Temp Pulse Resp BP Pulse Ox 36.3 C L 88 16 114/72 97 12/21/24 08:14 12/21/24 08:14 12/21/24 08:14 12/21/24 08:14 12/21/24 08:14 Constitutional normal general appearance and no apparent distress (pain) HENMT normocephalic Eyes PERRL and EOMs intact bilaterally Neck/C-Spine visual inspection normal Respiratory normal respiratory effort Cardiovascular normal heart rate noted Gastrointestinal abdomen soft to palpation, tender to palpation and distended less distended. No peritonitis. 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 Extremities normal to inspection Psychiatry mental status grossly normal and oriented x3 Skin skin color normal ABX Reporting Has patient been on IV antibiotics over the past 48 hours?: Yes Impression/Plan Problem List (1) Perforated appendicitis: Plan: 54yoF with acute perforated appendicitis + bacteroides bacteremia, with phlegmon abutting the right ureter and external iliac artery. Admitted with plan of IV antibiotics with interval appendectomy (6-8weeks after discharge). If does not clinically respond to IV abx, will need to repeat scan for possible IR drainage vs surgical intervention. HD5. WBC normalized and CHRISTIAN resolved. Still with pain and nausea (better than admission but worse than yesterday) and not tolerating solid food. Will repeat CT tonight with IV/oral contrast to assess for abscess. - IV cipro/flagyl for Bacteroides fragilis bacteremia - still awaiting susceptibilities - Reg diet as tolerated - K/Mg replaced today - LR @ 75 - IV multimodal pain control (no tylenol 2/2 history of tylenol-induced pancreatitis) - Trend CBC/BMP daily - IS, SCDs, Lovenox, ambulation Marilee Connors, DO, FACS General Surgeon, [facility] (2) Bacteremia due to Gram-negative bacteria: (3) CHRISTIAN (acute kidney injury): (4) HSV infection: Plan: Continue ppx acyclovir (5) HTN (hypertension): Plan: hold home antihypertensive Plan Marilee Connors DO, FACS General Surgeon, [facility]
[2024-12-24] MEDS ORDERED: DIATRIZOATE MEGLU/DIATRIZO SOD 30 ML BOTTLE PO ONE (17:15)
[2024-12-24] MEDS: DIATRIZOATE MEGLU/DIATRIZO SOD 30 ML BOTTLE PO ONE (17:46)
[2024-12-24] MEDS ORDERED: iohexoL-300 100 ML VIAL ONE (18:02)
[2024-12-24] MEDS: iohexoL-300 100 ML VIAL IVP ONE (18:05)
--- NOTE | 2024-12-24 19:01 | CT Report ---
PROCEDURE: CT Abdomen/Pelvis W INDICATIONS: IV/ORAL contrast, f/u perforated appendicitis CONTRAST: 100 ML OMNI 300 TECHNIQUE: After the administration of intravenous contrast, a CT scan of the abdomen and pelvis was performed. Images were recorded and evaluated at appropriate window settings. Reformats: coronal and sagittal. F or radiation dose reduction, the following was used: automated exposure control, adjustment of mA and /or kV according to patient size. COMPARISON: 12/20/2024 FINDINGS: Image quality: The dome of the liver was not fully seen. Otherwise diagnostic Lower chest: Normal heart size. Small effusions. Basal atelectasis. Liver: Unremarkable, but not fully seen Gallbladder and biliary system: Unremarkable, nondilated Pancreas: No ductal dilation Spleen: Nonenlarged Adrenals: Mild left-sided thickening. Kidneys: No hydronephrosis. No solid renal mass Vessels and lymph nodes: The main portal vein is patent. No abdominal aortic aneurysm. No pathologic lymphadenopathy by size criteria. Bowel and peritoneum: Diffusely prominent loops of small bowel. No small bowel obstruction. Mostly li quid, contents. Again seen is probable perforated appendicitis, with right lower quadrant inflammatio n. Small rim-enhancing fluid collection in the right pelvis measures 2.6 cm. There is also a fluid co llection tracking along the right paracolic gutter measuring 6.7 x 3.3 cm. The reference image , . These are slightly larger Body wall: Mild diffuse Pelvis: Bladder is unremarkable. Uterus is not Bones: There are degenerative changes. IMPRESSION: Perforated appendicitis, with slightly larger right paracolic and right pelvic fluid collections. Superimposed fluid-filled prominent loops of small and large bowel likely enterocolitis. No obstructi on. Other findings above. Reviewed by: Sharif Henry MD on 12/24/2024 7:00 PM PST Approved by: Sharif Henry MD on 12/24/2024 7:00 PM PST Station ID: [id number]
[2024-12-25 05:37] LABS: BASOPHILS % (AUTO) 0.3 %; EOSINOPHILS # (AUTO) 0.2 10^3/uL (0.0-0.7); HCT - HEMATOCRIT 26.9 % (37.0-47.0); HGB - HEMOGLOBIN 9.1 g/dL (12.0-16.0); LYMPHOCYTES # (AUTO) 2.2 10^3/uL (1.5-3.5); MEAN CORPUSCULAR HEMOGLOBIN 30.8 pg (27.0-31.0); MEAN CORPUSCULAR HGB CONC 33.8 g/dL (32.0-36.0); MEAN CORPUSCULAR VOLUME 91.2 fL (81.0-99.0); MEAN PLATELET VOLUME 9.6 fL (7.9-10.8); MONOCYTES # (AUTO) 1.7 10^3/uL (0.0-1.0); MONOCYTES % (AUTO) 14.1 %; NEUTROPHILS # (AUTO) 7.7 10^3/uL (1.5-6.6); PLT - PLATELET COUNT 231 10^3/uL (130-450); RED BLOOD COUNT 2.95 10^6/uL (4.20-5.40)
[2024-12-25 05:52] LABS: CALCIUM 8.1 mg/dL (8.5-10.3); CREATININE 0.9 mg/dL (0.6-1.3); PHOSPHORUS 3.6 mg/dL (2.5-5.0); POTASSIUM 3.3 mmol/L (3.5-4.5)
[2024-12-25 07:01] LABS: DIFFERENTIAL COMMENT MANUAL=AUTO DIFF; PLATELET ESTIMATE, MANUAL NORMAL (130-450,000) (NORMAL); PLATELET MORPHOLOGY NORMAL APPEARANCE (NORMAL); RBC MORPHOLOGY (MULTIPLE) NORMAL APPEARANCE (NORMAL); WBC MORPHOLOGY (MULTIPLE) NORMAL APPEARANCE (NORMAL)
--- NOTE | 2024-12-25 10:03 | PROVIDER PROGRESS NOTE ---
Subjective General Admit Date: 12/20/24 Other Other Information/Narrative: Overall no significant change. Able to eat 1/2 slice of rawls, otherwise not doing great with solid food. HDN/AF. WBC 10 --> [address] repeated last night - see below. Review of Systems Status of ROS: 10 or more systems reviewed and unremarkable except as noted in history and below Exam Exam Temp Pulse Resp BP Pulse Ox 36.3 C L 88 16 114/72 97 12/21/24 08:14 12/21/24 08:14 12/21/24 08:14 12/21/24 08:14 12/21/24 08:14 Constitutional normal general appearance and no apparent distress (pain) HENMT normocephalic Eyes PERRL and EOMs intact bilaterally Neck/C-Spine visual inspection normal Respiratory normal respiratory effort Cardiovascular normal heart rate noted Gastrointestinal abdomen soft to palpation, tender to palpation and distended stable distension. No peritonitis. 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 Extremities normal to inspection Psychiatry mental status grossly normal and oriented x3 Skin skin color normal Image 12/24/24 PROCEDURE: CT Abdomen/Pelvis W INDICATIONS: IV/ORAL contrast, f/u perforated appendicitis CONTRAST: 100 ML OMNI 300 TECHNIQUE: After the administration of intravenous contrast, a CT scan of the abdomen and pelvis was performed. Images were recorded and evaluated at appropriate window settings. Reformats: coronal and sagittal. For radiation dose reduction, the following was used: automated exposure control, adjustment of mA and/or kV according to patient size. COMPARISON: 12/20/2024 FINDINGS: Image quality: The dome of the liver was not fully seen. Otherwise diagnostic Lower chest: Normal heart size. Small effusions. Basal atelectasis. Liver: Unremarkable, but not fully seen Gallbladder and biliary system: Unremarkable, nondilated Pancreas: No ductal dilation Spleen: Nonenlarged Adrenals: Mild left-sided thickening. Kidneys: No hydronephrosis. No solid renal mass Vessels and lymph nodes: The main portal vein is patent. No abdominal aortic aneurysm. No pathologic lymphadenopathy by size criteria. Bowel and peritoneum: Diffusely prominent loops of small bowel. No small bowel obstruction. Mostly liquid, contents. Again seen is probable perforated appendicitis, with right lower quadrant inflammation. Small rim-enhancing fluid collection in the right pelvis measures 2.6 cm. There is also a fluid collection tracking along the right paracolic gutter measuring 6.7 x 3.3 cm. The reference image 64, . These are slightly larger Body wall: Mild diffuse Pelvis: Bladder is unremarkable. Uterus is not Bones: There are degenerative changes. IMPRESSION: Perforated appendicitis, with slightly larger right paracolic and right pelvic fluid collections. Superimposed fluid-filled prominent loops of small and large bowel likely enterocolitis. No obstruction. Other findings above. Reviewed by: Sharif Henry MD on 12/24/2024 7:00 PM PST Impression/Plan Problem List (1) Perforated appendicitis: Plan: 54yoF with acute perforated appendicitis + bacteroides bacteremia, with phlegmon abutting the right ureter and external iliac artery. Admitted with plan of IV antibiotics with interval appendectomy (6-8weeks after discharge). 11/23 - repeat CT shows 2.6cm pelvic abscess and increased fluid collection in right colic gutter. HD6. WBC back up to [address] last night without large drainable abscess and also increased fluid in right gutter - overall not as favorable as hoped for after 5d IV abx, though remains HDN/AF. Discussed options of continued IV abx vs going to OR for laparoscopic washout/possible drain placement (possible appendectomy if attainable, but still effort to avoid bowel resection/open surgery). Patient prefers to hold the course and wait a few more days before deciding re: surgery. - IV cipro/flagyl for Bacteroides fragilis bacteremia and perforated appendicitis - (no susceptibilities) - Reg diet as tolerated - change LR to D51/2+K @ 75 - IV multimodal pain control (no tylenol 2/2 history of tylenol-induced pancreatitis) - Trend CBC/BMP daily - IS, SCDs, Lovenox, ambulation Marilee Connors DO, JAYLYN General Surgeon, [facility] (2) Bacteremia due to Gram-negative bacteria: (3) CHRISTIAN (acute kidney injury): Plan: resolved (4) HSV infection: Plan: Continue ppx acyclovir (5) HTN (hypertension): Plan: hold home antihypertensive Plan Marilee Connors DO, FACS General Surgeon, [facility]
[2024-12-25] MEDS: POTASSIUM CHLORIDE 20 MEQ TABLET PO ONE (12:22)
--- NOTE | 2024-12-25 18:19 | ANESTHESIA PROCEDURE NOTE ---
Anesth Central Line Template Central Line Procedure Date: 12/25/24 Central Line Preparation: Consent Obtained, Time out completed, Ultrasound used and Sterile prep and drape Central line location: Right Basilic Central line type: PICC Single Lumen Central line aftercare: Secured, Placement confirmed, No pneumothorax, No complications, Bundle checklist complete and Pt tolerated well Other Info/Details: Cath cut to 33 after measurement. Threaded to hub, unable to change pwaves, PCXR to confirm, tip appears at R SVC/SOWMYA junction, unable to advance as cath is hubbed, ok to use as midline for IVF, ABX
--- NOTE | 2024-12-25 19:03 | XRAY Report ---
PROCEDURE: XR Chest for Line Placement INDICATIONS: new PICC @R basilic v. TECHNIQUE: One view of the chest was acquired. COMPARISON: Correlation is made with overlapping portions of abdomen and pelvis CT, 12/24/2024 FINDINGS: Surgical changes and devices: There is a right-sided PICC line seen, with the tip terminating superi davon, overlying the right brachiocephalic vein. Lungs and pleura: No pleural effusions or pneumothorax. No consolidation. Likely streaky atelectasi s is present at the lung bases. Mediastinum: Mediastinal contours appear normal. Heart size is normal. Bones and chest wall: No suspicious bony lesions. Overlying soft tissues appear unremarkable. IMPRESSION: The tip of the right-sided PICC line is seen overlying the right brachiocephalic vein. Please conside r repositioning. Reviewed by: Edinson Max MD on 12/25/2024 6:02 PM [place] Approved by: Edinson Max MD on 12/25/2024 6:02 PM [facility] Station ID: [id number]
[2024-12-26 09:28] LABS: HGB - HEMOGLOBIN 9.6 g/dL (12.0-16.0); MEAN CORPUSCULAR HEMOGLOBIN 30.4 pg (27.0-31.0); MEAN CORPUSCULAR HGB CONC 33.1 g/dL (32.0-36.0); MEAN CORPUSCULAR VOLUME 91.8 fL (81.0-99.0); MEAN PLATELET VOLUME 9.1 fL (7.9-10.8); RED BLOOD COUNT 3.16 10^6/uL (4.20-5.40); RED CELL DISTRIBUTION WIDTH 13.1 % (12.0-15.0); WHITE BLOOD COUNT 11.3 x10^3/uL (4.8-10.8)
[2024-12-26 09:44] LABS: CALCIUM 8.3 mg/dL (8.5-10.3); CREATININE 0.9 mg/dL (0.6-1.3); MAGNESIUM 1.9 mg/dL (1.7-2.3); PHOSPHORUS 2.9 mg/dL (2.5-5.0); POTASSIUM 3.5 mmol/L (3.5-4.5)
[2024-12-26] MEDS: POTASSIUM CHLORIDE INJ 40 MEQ in DEXTROSE 5%-0.45% NACL 980 ML IV SCH (15:21)
--- NOTE | 2024-12-26 16:26 | PROVIDER PROGRESS NOTE ---
Subjective General Admit Date: 12/20/24 Other Other Information/Narrative: HDN/af. Emesis yesterday and today, not tolerating PO. Diarrhea has resolved. WBC stable today 12 --> 11.5. Review of Systems Status of ROS: 10 or more systems reviewed and unremarkable except as noted in history and below Exam Exam Temp Pulse Resp BP Pulse Ox 36.3 C L 88 16 114/72 97 12/21/24 08:14 12/21/24 08:14 12/21/24 08:14 12/21/24 08:14 12/21/24 08:14 Constitutional normal general appearance and no apparent distress (pain) HENMT normocephalic Eyes PERRL and EOMs intact bilaterally Neck/C-Spine visual inspection normal Respiratory normal respiratory effort Cardiovascular normal heart rate noted Gastrointestinal abdomen soft to palpation, tender to palpation and distended stable distension. No peritonitis. 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 Extremities normal to inspection Psychiatry mental status grossly normal and oriented x3 Skin skin color normal Image 12/24/24 PROCEDURE: CT Abdomen/Pelvis W INDICATIONS: IV/ORAL contrast, f/u perforated appendicitis CONTRAST: 100 ML OMNI 300 TECHNIQUE: After the administration of intravenous contrast, a CT scan of the abdomen and pelvis was performed. Images were recorded and evaluated at appropriate window settings. Reformats: coronal and sagittal. For radiation dose reduction, the following was used: automated exposure control, adjustment of mA and/or kV according to patient size. COMPARISON: 12/20/2024 FINDINGS: Image quality: The dome of the liver was not fully seen. Otherwise diagnostic Lower chest: Normal heart size. Small effusions. Basal atelectasis. Liver: Unremarkable, but not fully seen Gallbladder and biliary system: Unremarkable, nondilated Pancreas: No ductal dilation Spleen: Nonenlarged Adrenals: Mild left-sided thickening. Kidneys: No hydronephrosis. No solid renal mass Vessels and lymph nodes: The main portal vein is patent. No abdominal aortic aneurysm. No pathologic lymphadenopathy by size criteria. Bowel and peritoneum: Diffusely prominent loops of small bowel. No small bowel obstruction. Mostly liquid, contents. Again seen is probable perforated appendicitis, with right lower quadrant inflammation. Small rim-enhancing fluid collection in the right pelvis measures 2.6 cm. There is also a fluid collection tracking along the right paracolic gutter measuring 6.7 x 3.3 cm. The reference image 4/64, . These are slightly larger Body wall: Mild diffuse Pelvis: Bladder is unremarkable. Uterus is not Bones: There are degenerative changes. IMPRESSION: Perforated appendicitis, with slightly larger right paracolic and right pelvic fluid collections. Superimposed fluid-filled prominent loops of small and large bowel likely enterocolitis. No obstruction. Other findings above. Reviewed by: Sharif Henry MD on 12/24/2024 7:00 PM PST ABX Reporting Has patient been on IV antibiotics over the past 48 hours?: Yes Impression/Plan Problem List (1) Perforated appendicitis: Plan: 54yoF with acute perforated appendicitis + bacteroides bacteremia, with phlegmon abutting the right ureter and external iliac artery. Admitted with plan of IV antibiotics with interval appendectomy (6-8weeks after discharge). 11/23 - repeat CT shows 2.6cm pelvic abscess and increased fluid collection in right colic gutter. HD7. Though she remains HDN/AF, her leukocytosis persists and most importantly she has not been able to tolerate PO after 7d IV abx. Repeat CT without large drainable abscess and also increased fluid in right gutter. At this point have to consider this a failure of abx mgmt. Patient now agreeable to surgical intervention - have consented and posted for tomorrow. to OR for laparoscopic washout/possible drain placement (possible appendectomy if attainable, but still effort to avoid bowel resection/open surgery). - NPO @ [place] for surgery tomorrow - IV cipro/flagyl for Bacteroides fragilis bacteremia and perforated appendicitis - (no susceptibilities) - Reg diet as tolerated - LR to D51/2+K @ 75 - IV multimodal pain control (no tylenol 2/2 history of tylenol-induced pancreatitis) - Trend CBC/BMP daily - IS, SCDs, Lovenox, ambulation Marilee Connors DO, FACS General Surgeon, [facility] (2) Bacteremia due to Gram-negative bacteria: (3) CHRISTIAN (acute kidney injury): Plan: resolved (4) HSV infection: Plan: Continue ppx acyclovir (5) HTN (hypertension): Plan: hold home antihypertensive Plan Marilee Connors DO, FACS General Surgeon, [facility]
--- NOTE | 2024-12-27 07:37 | ANESTHESIA PROCEDURE NOTE ---
Pre-Anesthesia VS, & Labs Diagnosis Surgical Diagnosis:: ruptured appendix Procedure Procedure: washout/appendectomy Vitals Vital Signs: Temp Pulse Resp BP Pulse Ox 36.4 C L 69 18 156/86 H 96 12/27/24 07:35 12/27/24 07:35 12/27/24 07:35 12/27/24 07:35 12/27/24 07:35 Height (in): 5 ft 4 in Weight (kg): 88 kg Body Mass Index: 33.3 BMI Classification: Obese NPO NPO: >8 hours Is Patient ?: No Comments:: pt has had a hysterectomy Lab Results Current Lab Results: Laboratory Tests 12/26/24 09:15: WBC 11.3 H, RBC 3.16 L, Hgb 9.6 L, Hct 29.0 L, MCV 91.8, MCH 30.4, MCHC 33.1, RDW 13.1, Plt Count 282, MPV 9.1, Sodium 135, Potassium 3.5, Chloride 106, Carbon Dioxide 22, Anion Gap 7.0, BUN 15, Creatinine 0.9, E stimated GFR (MDRD) 65 L, Glucose 118 H, Calcium 8.3 L, Phosphorus 2.9, Magnesium 1.9 12/25/24 05:00: WBC 12.0 H, RBC 2.95 L, Hgb 9.1 L, Hct 26.9 L, MCV 91.2, MCH 30.8, MCHC 33.8, RDW 13.0, Plt Count 231, MPV 9.6, Neut # (Auto) 7.7 H, Lymph # (Auto) 2.2, [place] # (Auto) 1.7 H, Eos # (Auto) 0.2, Baso # (Auto) 0.0, Absolute Nucleated RBC 0.00, Band Neuts % (Manual) Not Reportable, Abnorm Lymph % (Manual) Not Reportable, Nucleated RBC % 0.0, Neutrophils # (Manual) Not Reportable, Lymphocytes # (Manual) Not Reportable, Monocytes # (Manual) Not Reportable, Eosinophils # (Manual) Not Reportable, Basophils # (Manual) Not Reportable, Differential Comment MANUAL=AUTO DIFF, WBC Morphology NORMAL APPEARANCE, Platelet Estimate NORMAL (130-450,000), Platelet Morphology NORMAL APPEARANCE, RBC Morph Micro Appear NORMAL APPEARANCE, Sodium 135, Potassium 3.3 L, Chloride 109, Carbon Dioxide 22, Anion Gap 4.0 L, BUN 14, Creatinine 0.9, E stimated GFR (MDRD) 65 L, Glucose 97, Calcium 8.1 L, Phosphorus 3.6, Magnesium 2.0 12/24/24 05:52: WBC 10.9 H, RBC 3.10 L, Hgb 9.8 L, Hct 28.4 L, MCV 91.6, MCH 31.6 H, MCHC 34.5, RDW 13.1, Plt Count 210, MPV 9.5, Neut # (Auto) Not Reportable, Lymph # (Auto) Not Reportable, [place]trami # (Auto) Not Reportable, Eos # (Auto) Not Reportable, Baso # (Auto) Not Reportable, Absolute Nucleated RBC Not Reportable, Total Counted 100, Band Neuts % (Manual) 0, Abnorm Lymph % (Manual) 0, Nucleated RBC % Not Reportable, Neutrophils # (Manual) 8.4 H, Lymphocytes # (Manual) 1.5, Monocytes # (Manual) 1.0, Eosinophils # (Manual) 0.0, Basophils # (Manual) 0.0, Differential Comment MANUAL DIFFERENTIAL, WBC Morphology NORMAL APPEARANCE, Platelet Estimate NORMAL (130-450,000), Platelet Morphology NORMAL APPEARANCE, RBC Morph Micro Appear NORMAL APPEARANCE, Sodium 136, Potassium 3.3 L, Chloride 109, Carbon Dioxide 20 L, Anion Gap 7.0, BUN 21 H, Creatinine 1.0, E stimated GFR (MDRD) 58 L, Glucose 123 H, Calcium 8.6, Phosphorus 3.7, Magnesium 1.6 L 12/23/24 05:24: WBC 12.1 H, RBC 3.33 L, Hgb 10.2 L, Hct 31.2 L, MCV 93.7, MCH 30.6, MCHC 32.7, RDW 13.1, Plt Count 206, MPV 9.7, Neut # (Auto) 9.6 H, Lymph # (Auto) 1.1 L, [place]ami # (Auto) 1.2 H, Eos # (Auto) 0.1, Baso # (Auto) 0.0, Absolute Nucleated RBC 0.00, Nucleated RBC % 0.0, Sodium 134 L, Potassium 3.4 L, Chloride 107, Carbon Dioxide 20 L, Anion Gap 7.0, BUN 33 H, Creatinine 1.1, Estimated GFR (MDRD) 52 L, Glucose 108 H, Calcium 9.0, Phosphorus 2.9, Magnesium 1.8 12/22/24 05:12: WBC 14.6 H, RBC 3.34 L, Hgb 10.5 L, Hct 31.0 L, MCV 92.8, MCH 31.4 H, MCHC 33.9, RDW 13.0, Plt Count 182, MPV 9.8, Neut # (Auto) 12.7 H, Lymph # (Auto) 0.8 L, [place]ami # (Auto) 1.1 H, Eos # (Auto) 0.0, Baso # (Auto) 0.0, Absolute Nucleated RBC 0.00, Nucleated RBC % 0.0, Sodium 133 L, Potassium 3.4 L, Chloride 104, Carbon Dioxide 20 L, Anion Gap 9.0, BUN 47 H, Creatinine 1.4 H, E stimated GFR (MDRD) 39 L, Glucose 124 H, Calcium 9.0, Phosphorus 2.6, Magnesium 1.9 12/21/24 15:03: Sodium 131 L, Potassium 3.3 L, Chloride 100 L, Carbon Dioxide 23, Anion Gap 8.0, BUN 51 H, Creatinine 1.8 H, Estimated GFR (MDRD) 29 L, G lucose 126 H, Calcium 9.7 12/21/24 04:05: WBC 15.9 H, RBC 3.52 L, Hgb 10.8 L, Hct 32.4 L, MCV 92.0, MCH 30.7, MCHC 33.3, RDW 13.2, Plt Count 173, MPV 9.9, Neut # (Auto) 14.3 H, Lymph # (Auto) 0.7 L, [place]ami # (Auto) 0.8, Eos # (Auto) 0.0, Baso # (Auto) 0.0, Absolute Nucleated RBC 0.00, Nucleated RBC % 0.0, Sodium 135, Potassium 2.8 L, Chloride 100 L, Carbon Dioxide 23, Anion Gap 12.0, BUN 54 H, Creatinine 2.2 H, Estimated GFR (MDRD) 23 L, Glucose 116 H, Calcium 9.5, Phosphorus 2.8, Magnesium 1.9 12/20/24 01:53: Lactic Acid 2.0 12/20/24 01:44: PT 14.8 H, INR 1.4 H 12/19/24 21:56: WBC 21.6 H, RBC 4.31, Hgb 13.3, Hct 39.4, MCV 91.4, MCH 30.9, MCHC 33.8, RDW 13.0, Plt Count 219, MPV 9.4, Neut # (Auto) 19.4 H, Lymph # (Auto) 0.9 L, [place] # (Auto) 1.2 H, Eos # (Auto) 0.0, Baso # (Auto) 0.0, Absolute Nucleated RBC 0.00, Band Neuts % (Manual) Not Reportable, Abnorm Lymph % (Manual) Not Reportable, Nucleated RBC % 0.0, Neutrophils # (Manual) Not Reportable, Lymphocytes # (Manual) Not Reportable, Monocytes # (Manual) Not Reportable, Eosinophils # (Manual) Not Reportable, Basophils # (Manual) Not Reportable, Differential Comment MANUAL=AUTO DIFF, Platelet Estimate NORMAL (130-450,000), Platelet Morphology NORMAL APPEARANCE, RBC Morph Micro Appear NORMAL APPEARANCE, Sodium 134 L, Potassium 3.7, Chloride 99 L, Carbon Dioxide 22, Anion Gap 13.0, BUN 34 H, Creatinine 1.3, Estimated GFR (MDRD) 43 L, Glucose 184 H, Calcium 10.0, Total Bilirubin 0.7, AST 11, ALT 9 L, Alkaline Phosphatase 63, Total Protein 8.0, Albumin 4.3, Globulin 3.7, Albumin/Globulin Ratio 1.2, L ipase < 10 L Lab results reviewed: Yes 12/26/24 09:15 12/26/24 09:15 Meds/Allgy Home Medications Ambulatory Orders Medication Instructions Recorded Confirmed acyclovir 400 mg tablet 400 mg PO DAILY 12/20/24 12/20/24 cetirizine 10 mg capsule (All Day 10 mg PO BID PRN allergy symptoms 12/20/24 12/20/24 Allergy (cetirizine)) lisinopril 20 1 tab PO DAILY 12/20/24 12/20/24 mg-hydrochlorothiazide 25 mg tablet Allergies Allergies Allergy/AdvReac Type Severity Reaction Status Date / Time acetaminophen (From Tylenol) Allergy Severe Pancreatiti Verified 12/21/24 08:29 s amoxicillin (From Augmentin) Allergy Mild Nausea Verified 12/19/24 21:47 clavulanic acid (From Allergy Mild Nausea Verified 12/19/24 21:47 Augmentin) hydrocodone Allergy Mild Hives Verified 12/19/24 21:47 midazolam (From Versed) Allergy Mild Unknown Verified 12/19/24 21:47 morphine Allergy Mild Hallucinati Verified 12/19/24 21:47 ons sulfamethoxazole (From Allergy Mild Unknown Verified 12/19/24 21:47 Bactrim) tramadol Allergy Mild Hallucinati Verified 12/19/24 21:47 ons trimethoprim (From Bactrim) Allergy Mild Unknown Verified 12/19/24 21:47 PFSH Active Problems All Active Problems Bacteremia due to Gram-negative bacteria (Acute) CHRISTIAN (acute kidney injury) (Acute) Perforated appendicitis (Acute) Medical History Medical History HSV infection HTN (hypertension) History of acute pancreatitis (~2017) 2/2 tylenol Surgical History Surgical History History of tonsillectomy History of ovarian cystectomy History of tubal ligation History of Social History Social History Smoking Status: Current every day smoker Patient requests smoking cessation consult: No Relationship: Level: Independent Do you feel safe in your home environment?: Yes Suffered physical, verbal, emotional, or financial abuse?: No POLST Patient has POLST: No POLST Status: Full Code Anesthesia Exam (Expanded) Exam General: Alert and No acute distress Dental: WNL Mouth Openin Fingerbreadth Neck Mobility: Normal Mallampati classification: II Thyromental Distance: 4-6 cm Plan Plan Anesthesia Type: General Consent for Procedure(s) Verified and Reviewed: Yes Code Status: Attempt Resuscitation ASA Classification ASA classification: 2-Mild systemic disease Is this case an emergency?: No
[2024-12-27] MEDS ORDERED: ONDANSETRON 4 MG/2 ML VIAL IVP PRN (07:42)
[2024-12-27] MEDS ORDERED: ATROPINE ABBOJECT 1 MG/10 ML SYRINGE IVP PRN (07:42)
[2024-12-27] MEDS ORDERED: METOCLOPRAMIDE 10 MG/2 ML VIAL IVP PRN (07:42)
[2024-12-27] MEDS ORDERED: NALOXONE 0.4 MG/ML VIAL IVP PRN (07:42)
[2024-12-27] MEDS ORDERED: ePHEDrine 50 MG/ML VIAL IVP PRN (07:42)
[2024-12-27] MEDS ORDERED: fentaNYL 100 MCG/2 ML VIAL IVP PRN (07:42)
[2024-12-27] MEDS ORDERED: HYDROmorphone 0.5 MG/0.5 ML SYRINGE IVP PRN (07:42)
[2024-12-27] MEDS: SCOPOLAMINE PATCH TOP ONE (07:55)
[2024-12-27] MEDS: LACTATED RINGERS 1,000 ML IV SCH (08:01)
[2024-12-27] MEDS ORDERED: PROPOFOL 200 MG/20 ML VIAL IVP ONE (08:21)
[2024-12-27] MEDS ORDERED: ROCURONIUM 50 MG/5 ML VIAL ONE ×2 (08:21→10:24)
[2024-12-27] MEDS ORDERED: LIDOCAINE-PF 2% 10 ML AMP SUBQ ONE (08:21)
[2024-12-27] MEDS ORDERED: fentaNYL 100 MCG/2 ML VIAL ONE ×2 (08:22→10:51)
[2024-12-27] MEDS ORDERED: LIDOCAINE 1%-EPI 1:100000 20 ML MDV ONE (08:35)
[2024-12-27] MEDS ORDERED: BUPIVACAINE 0.25% PF 10 ML VIAL ONE (08:35)
[2024-12-27 09:05] LABS: HCT - HEMATOCRIT 26.9 % (37.0-47.0); MEAN CORPUSCULAR HEMOGLOBIN 30.8 pg (27.0-31.0); MEAN CORPUSCULAR HGB CONC 33.5 g/dL (32.0-36.0); MEAN CORPUSCULAR VOLUME 92.1 fL (81.0-99.0); MEAN PLATELET VOLUME 8.7 fL (7.9-10.8); RED BLOOD COUNT 2.92 10^6/uL (4.20-5.40); RED CELL DISTRIBUTION WIDTH 13.1 % (12.0-15.0); WHITE BLOOD COUNT 13.2 x10^3/uL (4.8-10.8)
[2024-12-27] MEDS ORDERED: ePHEDrine 50 MG/ML VIAL IVP ONE (09:17)
[2024-12-27 09:20] LABS: CREATININE 0.8 mg/dL (0.6-1.3); MAGNESIUM 1.9 mg/dL (1.7-2.3); PHOSPHORUS 2.9 mg/dL (2.5-5.0); POTASSIUM 3.3 mmol/L (3.5-4.5)
[2024-12-27] MEDS ORDERED: metroNIDAZOLE 500 MG/100 ML 500 MG/100 ML BAG ONE (09:33)
[2024-12-27] MEDS ORDERED: ONDANSETRON 4 MG/2 ML VIAL ONE (09:41)
[2024-12-27] MEDS ORDERED: diphenhydrAMINE INJ 50 MG/ML VIAL ONE (09:41)
[2024-12-27] MEDS ORDERED: DEXAMETHASONE 4 MG/ML VIAL ONE (09:41)
[2024-12-27] MEDS ORDERED: SUGAMMADEX 200 MG/2 ML VIAL IVP ONE (09:49)
[2024-12-27] MEDS ORDERED: HYDROmorphone 1 MG/ML CARPUJECT ONE (11:04)
--- NOTE | 2024-12-27 11:31 | OPERATIVE REPORT ---
Operative Report General Admit Date: 12/20/24 Procedure Data: Operation Date: 12/27/24 09:00 Proposed Procedures p Laparoscopic Appendectomy(Not Applicable) - Marilee Connors DO Actual Procedures p DIAGNOSTIC LAPAROSCOPY, ABDOMINAL WASHOUT, DRAIN PLACEMENT, APPENDECTOMY(Not Applicable) - Marilee Connors DO Anesthesia Type General Case Staff Anesthesia Provider: Khris Nolan Case Times Procedure Start: 12/27/24 09:25 Procedure End: 12/27/24 11:10 Time out: 12/27/24 09:24 Pre-Op Diagnosis: perforated appendicitis, failed antibiotic management Post Op Diagnosis: perforated appendicitis, failed antibiotic management Procedure Note Intake, IV Amount (ml): 1,000 Estimated Blood Loss (ml): 15 Output, Urine Amount (ml): 200 Drain/Tube Type: Kuldeep Mckeon round drain (19F, right colic gutter) Pathology: 1) base of appendix 2) midportion of appendix (perforated) 3) distal appendix Indications: 54F admitted with perforated appendicitis and bacteroides bacteremia, after 1 week of IV antibiotics she is still not tolerating PO with increased free fluid on repeat CT scan. Findings: Perforated appendicitis, 3 walled off abscesses in the RLQ/right gutter. No free purulent fluid on entering the abdomen. Appendix found to be perforated at midportion, and tethered to cecum by only a thin strand of tissue. Removed in 3 portions (distal, midportion, and base) - able to identify appendiceal stump on cecum and staple this off. Drain placed in right gutter. Complications: none Other Other Information/Narrative: The patient was brought to the operating room with universal protocol observed throughout. They were placed supine on the operating room table with the left arm tucked. A Meyer was placed. General anesthesia with endotracheal tube was induced by the anesthesia service. The abdomen was prepped and draped in standard sterile fashion. A timeout was performed with all members of the team being in agreement. Local anesthetic of 1% lidocaine with epinephrine mixed with Marcaine plain was injected into the periumbilical skin, and the skin was incised sharply. Blunt dissection down to the level of the fascia was performed. The umbilical stalk was elevated and the fascia was incised sharply in a vertical orientation and the peritoneal cavity was entered bluntly with a Radha clamp. A 12 mm balloon trocar was placed. The abdomen was insufflated with CO2 gas to a pressure of 15 mmHg which the patient tolerated well. The laparoscope was inserted and visual inspection revealed no evidence of injury upon entry. Two additional 5mm trocars were placed under direct visualization: one in the left lower quadrant, one in the suprapubic position. Graspers were introduced into the abdomen. There was no free purulent fluid in the abdomen upon entry, there was serous fluid in the pelvis. The cecum and small bowel were adherent to the right pelvic side wall. These were gently peel ed off the side wall and apart from each other, revealing 3 areas of walled off purulent fluid in the right lower quadrant and right colic gutter. The purulent fluid was suctioned. The area was irrigated and suctioned repeatedly, until the structures could be further teased apart. I was able to identify the large indurated and inflammed distal appendix and trace this back toward the cecum, where I found a thin strand of tissue and the appendiceal artery as the only remaining tethers to the appendix - I stapled across these with the vascular endo FOREST load, placed the specimen in an endocatch bag and extracted through the umbilical port. The specimen was examined ex vivo and seen to be in two pieces - the distal and midportion of the appendix. I further examined the cecum and was able to identify a diminutive appendiceal stump, which I stapled across with a blue load and removed for specimen. The staple lines were inspected and noted to be intact and hemostatic. The right gutter was irrigated and suctioned until the irrigant was clean. A 19F round drain was placed in the right colic gutter and brought out through the suprapubic port site. It was secured to the skin with 2- 0 Nylon. The trocars were removed under direct visualization. The umbilical fascia was closed with 0 Vicryl [id number] sutures x3. The umbilical wound was irrigated with clean irrigant. Hemostasis in the wound was achieved with Bovie electrocautery and all skin incisions were closed with subcuticular 4-0 Monocryl suture. Dressings of Steri-Strips, gauze, and Tegaderm were applied. The patient was extubated and awoken from general anesthesia. The meyer was removed. There were no complications. All sponge needle counts were correct. The patient was transferred to the PACU in good condition. Marilee Connors DO, FACS General Surgeon, [facility]
--- NOTE | 2024-12-27 11:43 | PROVIDER PROGRESS NOTE ---
Subjective General Admit Date: 12/20/24 Procedure Date: 12/27/24 Post Op Days: 0 Procedure Performed: Dx lap, appendectomy, washout/drain placement Other Other Information/Narrative: To OR this AM - found perforated appendicitis with walled off purulence; able to complete appendectomy and place drain. Will return to floor for continued mgmt, in PACU now. Wound Assessment Wound/Incisions: positive Dressing dry and intact Review of Systems Status of ROS: 10 or more systems reviewed and unremarkable except as noted in history and below Exam Exam Temp Pulse Resp BP Pulse Ox 36.3 C L 88 16 114/72 97 12/21/24 08:14 12/21/24 08:14 12/21/24 08:14 12/21/24 08:14 12/21/24 08:14 Constitutional normal general appearance and no apparent distress (pain) HENMT normocephalic Eyes PERRL and EOMs intact bilaterally Neck/C-Spine visual inspection normal Respiratory normal respiratory effort Cardiovascular normal heart rate noted Gastrointestinal abdomen soft to palpation, tender to palpation and distended stable distension. No peritonitis. 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 Extremities normal to inspection Psychiatry mental status grossly normal and oriented x3 Skin skin color normal Image 12/24/24 PROCEDURE: CT Abdomen/Pelvis W INDICATIONS: IV/ORAL contrast, f/u perforated appendicitis CONTRAST: 100 ML OMNI 300 TECHNIQUE: After the administration of intravenous contrast, a CT scan of the abdomen and pelvis was performed. Images were recorded and evaluated at appropriate window settings. Reformats: coronal and sagittal. For radiation dose reduction, the following was used: automated exposure control, adjustment of mA and/or kV according to patient size. COMPARISON: 12/20/2024 FINDINGS: Image quality: The dome of the liver was not fully seen. Otherwise diagnostic Lower chest: Normal heart size. Small effusions. Basal atelectasis. Liver: Unremarkable, but not fully seen Gallbladder and biliary system: Unremarkable, nondilated Pancreas: No ductal dilation Spleen: Nonenlarged Adrenals: Mild left-sided thickening. Kidneys: No hydronephrosis. No solid renal mass Vessels and lymph nodes: The main portal vein is patent. No abdominal aortic aneurysm. No pathologic lymphadenopathy by size criteria. Bowel and peritoneum: Diffusely prominent loops of small bowel. No small bowel obstruction. Mostly liquid, contents. Again seen is probable perforated appendicitis, with right lower quadrant inflammation. Small rim-enhancing fluid collection in the right pelvis measures 2.6 cm. There is also a fluid collection tracking along the right paracolic gutter measuring 6.7 x 3.3 cm. The reference image , . These are slightly larger Body wall: Mild diffuse Pelvis: Bladder is unremarkable. Uterus is not Bones: There are degenerative changes. IMPRESSION: Perforated appendicitis, with slightly larger right paracolic and right pelvic fluid collections. Superimposed fluid-filled prominent loops of small and large bowel likely enterocolitis. No obstruction. Other findings above. Reviewed by: Sharif Henry MD on 12/24/2024 7:00 PM PST ABX Reporting Has patient been on IV antibiotics over the past 48 hours?: Yes Impression/Plan Problem List (1) Perforated appendicitis: Plan: 54yoF with acute perforated appendicitis + bacteroides bacteremia, with phlegmon abutting the right ureter and external iliac artery. Admitted with plan of IV antibiotics with interval appendectomy, but ultimately failed abx mgmt. 12/24 - repeat CT shows 2.6cm pelvic abscess and increased fluid collection in right colic gutter. 12/27 - dx lap/lap appy/washout and drain placement Post-op plan: - Continue IV multimodal pain control, transition to PO when tolerating diet consistently (no tylenol 2/ history of tylenol-induced pancreatitis) - Regular diet as tolerated. PPN starting today given 1wk of minimal PO intake/only some clears - D51/2+K @ 75, wean with PPN and as diet tolerated - Continue cipro/flagyl x4 days postop, transition to PO when tolerating deit. (for Bacteroides fragilis bacteremia and perforated appendicitis - (no susceptibilities)) - continue RHYS drain for now - Trend CBC/BMP daily - IS, SCDs, Lovenox, ambulation - Continue home ppx acyclovir - hold home antihypertensive *care signed out to Dr. Astorga starting later today Marilee Connors DO, FACS General Surgeon, [facility] (2) Bacteremia due to Gram-negative bacteria: (3) CHRISTIAN (acute kidney injury): Plan: RESOLVED (4) HSV infection: (5) HTN (hypertension):
[2024-12-27] MEDS: PPN (CLINIMIX E 4.25/5) 2,000 ML with MULTIVITAMIN 10 ML, TRACE ELEMENTS 1 ML IV SCH (18:48)
[2024-12-27] MEDS: FAT EMULSION 20% 250 ML IV SCH (18:48)
[2024-12-28 05:12] LABS: ALBUMIN 2.5 g/dL (3.2-5.5); BILIRUBIN,TOTAL 0.2 mg/dL (0.2-1.0); CALCIUM 7.5 mg/dL (8.5-10.3); CREATININE 0.8 mg/dL (0.6-1.3); POTASSIUM 3.2 mmol/L (3.5-4.5)
--- NOTE | 2024-12-28 07:18 | PROVIDER PROGRESS NOTE ---
Subjective General Admit Date: 12/20/24 Procedure Date: 12/27/24 Post Op Days: 1 Procedure Performed: Dx lap, appendectomy, washout/drain placement Other Other Information/Narrative: Pain controlled, using IV narcotic pain meds q2h per RN. No nausea or vomiting but still very little appetite and patient reports significant food aversion. No flatus or BM since surgery. Patient did ambulate in room after procedure yesterday. +void +IS Wound Assessment Wound/Incisions: positive Dressing dry and intact Exam Exam Gen: NAD, alert and oriented CV: RRR Pulm: non labored, on RA Abd: soft, appropriate incisional ttp, incisions c/d/i. Drain with serosang fluid in bulb.~230mL out since surgery Ext: no c/c/e ABX Reporting Has patient been on IV antibiotics over the past 48 hours?: Yes Impression/Plan Problem List (1) Perforated appendicitis: Plan: - patient failed conservative management - s/p lap appy and abdominal washout on 12/[address] Connors - drain to remain in place until output decreases (2) Bacteremia due to Gram-negative bacteria: Plan: - resolved - IV abx until tolerating PO, plan for total of 3 more days abx (3) CHRISTIAN (acute kidney injury): Plan: - resolved (4) HSV infection: Plan: - stable (5) HTN (hypertension): Plan hypokalemia - replete PO - checking mag level as well ileus - as expected with infectious process - patient only tolerating small amount of clears - regular diet available as patient able to tolerate - again discussed PO high protein options, patient will try to advance diet today. Still minimal appetite. - increase activity - PPN running, will decrease rate as patient able to tolerate more PO intake
[2024-12-28] MEDS: ENOXAPARIN 40 MG/0.4 ML SYRINGE SUBQ SCH (08:30)
[2024-12-28 08:34] LABS: HCT - HEMATOCRIT 27.2 % (37.0-47.0); HGB - HEMOGLOBIN 9.1 g/dL (12.0-16.0); MEAN CORPUSCULAR HEMOGLOBIN 31.1 pg (27.0-31.0); MEAN CORPUSCULAR HGB CONC 33.5 g/dL (32.0-36.0); MEAN CORPUSCULAR VOLUME 92.8 fL (81.0-99.0); MEAN PLATELET VOLUME 9.3 fL (7.9-10.8); RED BLOOD COUNT 2.93 10^6/uL (4.20-5.40); RED CELL DISTRIBUTION WIDTH 13.3 % (12.0-15.0); WHITE BLOOD COUNT 21.9 x10^3/uL (4.8-10.8)
[2024-12-28] MEDS: POTASSIUM CHLORIDE 20 MEQ TABLET PO SCH (13:59)
[2024-12-28] MEDS: IBUPROFEN 600 MG TABLET PO SCH (17:39)
[2024-12-28] MEDS: oxyCODONE 5 MG TABLET PO PRN (19:25)
[2024-12-29 09:20] LABS: HCT - HEMATOCRIT 25.9 % (37.0-47.0); HGB - HEMOGLOBIN 8.7 g/dL (12.0-16.0); MEAN CORPUSCULAR HEMOGLOBIN 31.2 pg (27.0-31.0); MEAN CORPUSCULAR HGB CONC 33.6 g/dL (32.0-36.0); MEAN CORPUSCULAR VOLUME 92.8 fL (81.0-99.0); RED BLOOD COUNT 2.79 10^6/uL (4.20-5.40); RED CELL DISTRIBUTION WIDTH 13.4 % (12.0-15.0); WHITE BLOOD COUNT 18.9 x10^3/uL (4.8-10.8)
[2024-12-29 09:37] LABS: CALCIUM 7.8 mg/dL (8.5-10.3); CREATININE 0.8 mg/dL (0.6-1.3); PHOSPHORUS 3.2 mg/dL (2.5-5.0); POTASSIUM 3.5 mmol/L (3.5-4.5)
--- NOTE | 2024-12-29 10:22 | PROVIDER PROGRESS NOTE ---
Subjective General Admit Date: 12/20/24 Procedure Date: 12/27/24 Post Op Days: 3 Procedure Performed: Dx lap, appendectomy, washout/drain placement Other Other Information/Narrative: POD2 Scheduled motrin, prn oxy x2, prn dilaudid x several, prn antiemetics x several. HDN/AF. WBC 21 to 18. Minimal PO but improving - some fruit, some waffle, less antiemetics. . RHYS drain - serous Wound Assessment Wound/Incisions: positive Dressing dry and intact Review of Systems Status of ROS: 10 or more systems reviewed and unremarkable except as noted in history and below Exam Exam Temp Pulse Resp BP Pulse Ox 36.3 C L 88 16 114/72 97 12/21/24 08:14 12/21/24 08:14 12/21/24 08:14 12/21/24 08:14 12/21/24 08:14 Constitutional normal general appearance and no apparent distress (pain) HENMT normocephalic Eyes PERRL and EOMs intact bilaterally Neck/C-Spine visual inspection normal Respiratory normal respiratory effort Cardiovascular normal heart rate noted Gastrointestinal abdomen soft to palpation, tender to palpation and distended less distension. less tender. Extremities normal to inspection Psychiatry mental status grossly normal and oriented x3 Skin skin color normal Impression/Plan Problem List (1) Perforated appendicitis: Plan: 54yoF with acute perforated appendicitis + bacteroides bacteremia, with phlegmon abutting the right ureter and external iliac artery. Admitted with plan of IV antibiotics with interval appendectomy, but ultimately failed abx mgmt and went to OR. 12/24 - repeat CT shows 2.6cm pelvic abscess and increased fluid collection in right colic gutter. 12/27 - dx lap/lap appy/washout and drain placement POD2 now: - PO motrin scheduled, prn PO oxycodone/IV dilaudid. Discussed adding gabapentin for multimodal pain reg - has had bad reaction (hallucinations) in the past. (no tylenol 2/2 history of tylenol-induced pancreatitis) - Regular diet as tolerated. + PPN until PO tolerance improved. - Continue cipro/flagyl x4 days postop, transition to PO when tolerating diet. (for Bacteroides fragilis bacteremia and perforated appendicitis - (no susceptibilities)) - continue RHYS drain for now, likely remove tomorrow - Trend CBC/BMP daily - IS, SCDs, Lovenox, ambulation - Continue home ppx acyclovir - hold home antihypertensive Marilee Connors DO, FACS General Surgeon, [facility] (2) Bacteremia due to Gram-negative bacteria: (3) CHRISTIAN (acute kidney injury): Plan: RESOLVED (4) HSV infection: (5) HTN (hypertension):
--- NOTE | 2024-12-30 07:29 | PROVIDER PROGRESS NOTE ---
Subjective General Admit Date: 12/20/24 Procedure Date: 12/27/24 Post Op Days: 3 Procedure Performed: Dx lap, appendectomy, washout/drain placement Other Other Information/Narrative: Pain controlled with PO and IV meds. Tolerating regular diet in small amounts, increasing. No n/v. No f/c. Wound Assessment Wound/Incisions: positive Dressing dry and intact Exam Exam Gen: NAD, alert and oriented CV: RRR Pulm: non labored, on RA Abd: soft, appropriate incisional ttp, incisions c/d/i. Drain with serosang fluid in bulb. ~15mL out in last 24 hours, serosang. Ext: no c/c/e Impression/Plan Problem List (1) Perforated appendicitis: Plan: - patient failed conservative management - s/p lap appy and abdominal washout on 12/[address] Connors - drain output clear, 15mL in last 24 hours. Plan to remove if leukocytosis improving (2) Bacteremia due to Gram-negative bacteria: Plan: - resolved - IV abx until tolerating PO, plan for total of 2 more days abx (transitioning to PO today) (3) CHRISTIAN (acute kidney injury): Plan: - resolved (4) HSV infection: Plan: - stable (5) HTN (hypertension): Plan AM labs pending ileus - resolving - as expected with infectious process - patient only tolerating regular diet in small amounts - d/c ppn today f/u AM labs. Remove drain if wbc improving. Possible discharge if patient able to tolerate PO meds only for pain, PO abx.
[2024-12-30] MEDS: CIPROFLOXACIN 250 MG TABLET PO SCH (09:24)
[2024-12-30] MEDS: GABAPENTIN 300 MG CAPSULE PO SCH (09:24)
[2024-12-30 10:08] LABS: HCT - HEMATOCRIT 24.2 % (37.0-47.0); HGB - HEMOGLOBIN 7.9 g/dL (12.0-16.0); MEAN CORPUSCULAR HEMOGLOBIN 30.9 pg (27.0-31.0); MEAN CORPUSCULAR HGB CONC 32.6 g/dL (32.0-36.0); MEAN CORPUSCULAR VOLUME 94.5 fL (81.0-99.0); RED BLOOD COUNT 2.56 10^6/uL (4.20-5.40); RED CELL DISTRIBUTION WIDTH 13.9 % (12.0-15.0); WHITE BLOOD COUNT 14.9 x10^3/uL (4.8-10.8)
[2024-12-30 10:29] LABS: CALCIUM 7.6 mg/dL (8.5-10.3); CREATININE 0.8 mg/dL (0.6-1.3); MAGNESIUM 1.9 mg/dL (1.7-2.3); PHOSPHORUS 3.4 mg/dL (2.5-5.0); POTASSIUM 3.6 mmol/L (3.5-4.5)
[2024-12-30] MEDS: metroNIDAZOLE 250 MG TABLET PO SCH (11:47)
[2024-12-30] MEDS: CETIRIZINE 10 MG TABLET PO SCH (14:06)
[2024-12-31] MEDS: ONDANSETRON ODT 4 MG TABLET TL PRN (07:54)
[2024-12-31 08:28] VITALS: BP 106/65; TEMP 97.5; O2SAT 97
--- NOTE | 2024-12-31 09:28 | Discharge Summary ---
Discharge Summary Admit Date: 12/20/24 Discharge Date: 12/31/24 Discharging Provider: Marilee Connors DO Code Status: Attempt Resuscitation DIAGNOSES Admission Diagnoses: perforated appendicitis bacteremia acute kidney injury hypertension history of HSV infection Discharge Diagnoses with Status of Each Condition: perforated appendicitis - resolved s/p laparoscopic appendectomy bacteremia - resolved acute kidney injury - resolved hypertension - chronic, unchanged history of HSV infection - chronic, unchanged HPI History of Present Illness: 54F with 4d progressively worsening abdominal pain associated with emesis and diarrhea and PO intolerance, starting Friday night. She last tried to eat solid food Friday night. Friday and ongoing she tried to sip liquids, the nausea continued and she reports that the emesis and diarrhea slowed down after "nothing was left". +subjective fevers and chills. +dysuria. No prior similar episodes. CONSULTS | PROCEDURES Procedures: Diagnostic laparoscopy, abdominal washout, laparoscopic appendectomy HOSPITAL COURSE Hospital Course: The patient was admitted with perforated appendicitis and treated with IV Cipro/Flagyl. Within the first 24hr was also found to have Bacteroides bacteremia as well as CHRISTIAN. Additional IV fluid resuscitation was given, and the CHRISTIAN resolved. She remained HD normal and afebrile throughout the first week of IV antibiotics, however was not able to achieve PO tolerance or good pain control. A PICC was placed do to repeated poor IV access. A repeat CT was completed showing no large drainable abscess but increased free fluid in the abdomen. PPN was started due to poor PO intake. Ultimately clinical course represented failure of antibiotic treatment and decision was made to proceed to operating room for diagnostic laparoscopy. In the OR the perforation was found to be walled off in several locations within the right colic gutter, and the appendix was ruptured into three pieces. A laparoscopic appendectomy was able to be completed, and a RHYS drain was placed. Postoperatively she was kept on 4 days of IV cipro/flagyl. Her WBC downtrending and she remained HDN and AF. Her appetite slowly improved and the PPN was weaned as PO tolerance improved. The RHYS drain remained serous and was removed on POD3. She was discharged to home in good condition on POD4. ALLERGIES Allergies Allergy/AdvReac Type Severity Reaction Status Date / Time acetaminophen (From Tylenol) Allergy Severe Pancreatiti Verified 12/21/24 08:29 s amoxicillin (From Augmentin) Allergy Mild Nausea Verified 02/16/25 21:47 clavulanic acid (From Allergy Mild Nausea Verified 12/19/24 21:47 Augmentin) hydrocodone Allergy Mild Hives Verified 12/19/24 21:47 midazolam (From Versed) Allergy Mild Unknown Verified 12/19/24 21:47 morphine Allergy Mild Hallucinati Verified 12/19/24 21:47 ons sulfamethoxazole (From Allergy Mild Unknown Verified 12/19/24 21:47 Bactrim) tramadol Allergy Mild Hallucinati Verified 12/19/24 21:47 ons trimethoprim (From Bactrim) Allergy Mild Unknown Verified 12/19/24 21:47 MEDICATIONS Ambulatory Orders Medication Instructions Recorded Confirmed acyclovir 400 mg tablet 400 mg PO DAILY 12/20/24 12/20/24 cetirizine 10 mg capsule (All Day 10 mg PO BID PRN allergy symptoms 12/20/24 12/20/24 Allergy (cetirizine)) lisinopril 20 1 tab PO DAILY 12/20/24 12/20/24 mg-hydrochlorothiazide 25 mg tablet ibuprofen 600 mg tablet 600 mg PO Q6HR #60 tabs 12/31/24 ondansetron 4 mg disintegrating 4 mg translingual Q6HR PRN Nausea 12/31/24 tablet / Vomiting #10 tabs oxycodone 5 mg tablet 5 mg PO Q4HR PRN Severe Pain 12/31/24 (Level 7-10) #20 tabs PHYSICAL EXAM AT DISCHARGE General Appearance: positive No acute distress and Alert Eyes Bilateral: positive Normal inspection ENT: positive ENT inspection nml Neck: positive Nml inspection Respiratory: positive No respiratory distress Cardiovascular: positive Regular rate & rhythm Peripheral Pulses: positive 2+ Abdomen: positive Non-tender, No distention and Other (incisions CDI); negative Rebound Skin: positive Color nml Extremities: positive Non-tender, Full ROM and Nml appearance Neurologic/Psychiatric: positive Oriented x3 LABS 12/30/24 09:05 12/30/24 09:55 DIAGNOSTIC IMAGING Diagnostic Imaging Results Comments: EXAM: [id number] CT/[facility] ([id number]) PROCEDURE: CT Abdomen/Pelvis W INDICATIONS: abd pain CONTRAST: 100 ML OMNI 300 TECHNIQUE: After the administration of intravenous contrast, a CT scan of the abdomen and pelvis was performed. Images were recorded and evaluated at appropriate window settings. Reformats: coronal and sagittal. For radiation dose reduction, the following was used: automated exposure control, adjustment of mA and/or kV according to patient size. COMPARISON: None. FINDINGS: Image quality: Diagnostic. Peritoneum: No pneumoperitoneum or ascites. Bones: No acute osseous abnormality. Lower Thorax: Mild cardiomegaly. Small hiatal hernia. Liver: Normal in size and contour. Gallbladder: No wall thickening, stones, or pericholecystic edema. Biliary tree: No intrahepatic or extrahepatic biliary duct dilatation. Pancreas: No acute abnormality. Spleen: Normal in size. Kidneys: Symmetric enhancement without hydronephrosis or obstructive urolithiasis. Adrenals: No nodularity. Bladder: No abnormal wall thickening. : No acute abnormality. Stomach: No focal masses or abnormal distension. Bowel: Normal bowel wall diameter without obstruction. Dilated, fluid-filled appendix measuring up to 1.3 cm in maximum diameter (2/118; 4/48). Extensive fat stranding is present around the midportion of the appendix with an ill-defined 2.2 cm long collection that perforates inferiorly from the midportion of the appendiceal lumen (4/50). This collection is directly anterior to the right external iliac artery and ureter (2/107-121). There is adjacent peritoneal fat stranding. The adjacent small bowel is fluid-filled. Small-volume fluid in the colon. Lymph Nodes: No retroperitoneal, mesenteric, or inguinal lymphadenopathy. Nonenlarged mesenteric nodes are present adjacent to the appendiceal perforation. Vascular: No abdominal aortic aneurysm. The visualized arterial vasculature is patent. Soft tissues: No acute abnormality. IMPRESSION: 1.Acute, complicated appendicitis with focal perforation at the midportion of the appendix, and an adjacent small phlegmon. Please note the proximity of the phlegmon to the right external iliac artery and ureter. 2.Likely reactive enteritis and colitis. These findings were communicated to the ordering provider, Dr Valencia, by Elroy Guevara MD, on 12/20/2024 at 1:59 AM. Reviewed by: Elroy Guevara MD on 12/20/2024 2:01 AM PST EXAM: [id number] CT/[facility] ([id number]) PROCEDURE: CT Abdomen/Pelvis W INDICATIONS: IV/ORAL contrast, f/u perforated appendicitis CONTRAST: 100 ML OMNI 300 TECHNIQUE: After the administration of intravenous contrast, a CT scan of the abdomen and pelvis was performed. Images were recorded and evaluated at appropriate window settings. Reformats: coronal and sagittal. For radiation dose reduction, the following was used: automated exposure control, adjustment of mA and/or kV according to patient size. COMPARISON: 12/20/2024 FINDINGS: Image quality: The dome of the liver was not fully seen. Otherwise diagnostic Lower chest: Normal heart size. Small effusions. Basal atelectasis. Liver: Unremarkable, but not fully seen Gallbladder and biliary system: Unremarkable, nondilated Pancreas: No ductal dilation Spleen: Nonenlarged Adrenals: Mild left-sided thickening. Kidneys: No hydronephrosis. No solid renal mass Vessels and lymph nodes: The main portal vein is patent. No abdominal aortic aneurysm. No pathologic lymphadenopathy by size criteria. Bowel and peritoneum: Diffusely prominent loops of small bowel. No small bowel obstruction. Mostly liquid, contents. Again seen is probable perforated appendicitis, with right lower quadrant inflammation. Small rim-enhancing fluid collection in the right pelvis measures 2.6 cm. There is also a fluid collection tracking along the right paracolic gutter measuring 6.7 x 3.3 cm. The reference image , . These are slightly larger Body wall: Mild diffuse Pelvis: Bladder is unremarkable. Uterus is not Bones: There are degenerative changes. IMPRESSION: Perforated appendicitis, with slightly larger right paracolic and right pelvic fluid collections. Superimposed fluid-filled prominent loops of small and large bowel likely enterocolitis. No obstruction. Other findings above. Reviewed by: Sharif Henry MD on 12/24/2024 7:00 PM PST SEPSIS Current Stage of Sepsis: Resolved Possible source of Sepsis: GI tract/intra-abdominal Confirmed Source and Organism (if known) of Sepsis: perforated appendicitis Sepsis Criteria: Recorded Heart Rate greater than 90 bpm, WBC count greater than 10% bands and WBC count greater than 12,000 or less than 4000 FOLLOW UP Follow Up: Dr. Connors, January 10- TIME SPENT Time Spent in Discharge (Minutes): 30 Discharge Plan Discharge Patient Disposition: 01 Home, Self Care Condition: Good Medically Cleared Date:: 12/31/24 Prescriptions: New ibuprofen 600 mg Tablet 600 mg PO Q6HR Qty: 60 0RF ondansetron 4 mg Tablet,Disintegrating 4 mg translingual Q6HR PRN (Reason: Nausea / Vomiting) Qty: 10 0RF oxycodone 5 mg Tablet 5 mg PO Q4HR PRN (Reason: Severe Pain (Level 7-10)) Qty: 20 0RF Continued acyclovir 400 mg tablet 400 mg PO DAILY lisinopril-hydrochlorothiazide 20-25 mg tablet 1 tab PO DAILY All Day Allergy (cetirizine) 10 mg capsule 10 mg PO BID PRN (Reason: allergy symptoms) Activity Restrictions: Activity as Tolerated Activity Restrictions/Additional Instructions: DIET * You may resume your normal diet if there is no nausea or vomiting. * If nausea or vomiting occurs, don't eat or drink anything for one hour. Then start drinking small amounts of clear liquids. Later, add crackers, gradually building up to your usual diet. ACTIVITY INSTRUCTIONS * No lifting more than 20 pounds for 4 weeks * May shower normally DRESSING CARE * Leave the Steristrips (white tape) in place - they will fall off on their own in 1-2 weeks * Using supportive garments to reduce surgical site motion will reduce pain DISCHARGE INSTRUCTIONS * Please call the General Surgery Clinic / Dr. Connors's office ([phone]) for any questions or signs of infection (redness or drainage at incision, worsening pain/nausea/vomiting/fever). * Go to the Emergency Room after hours for severe symptoms. MEDICATIONS * Use Motrin (ibuprofen) on a scheduled basis for the first several days, then on as "as needed" basis as pain decreases. * Use Oxycodone (a narcotic) for breakthrough pain. Do not drive while taking Oxycodone. * Oxycodone may call cause constipation - drink plenty of water, and use [id number] Miralax twice a day as needed. * You may use Zofran ODT (under the tongue) for nausea as needed. FOR THE NEXT 24 HOURS: * Have a responsible person with you * Avoid any activity that requires you to be alert and coordinated * DO NOT DRIVE a motor vehicle for 24 hours or as long as you are taking opioid pain medication * Do not drink alcoholic beverages * Do not smoke unattended Patient Date Escort Date RN Date Diet: Regular Care Plan Goals: Ongoing surgical recovery to regain strength, full appetite, and pain control at home. Print Language: Kinyarwanda Patient Instructions: Surgery Anesthesia After Stand Alone Forms: PCP List Follow-up Care: Marilee Connors DO [Provider Admit Priv/Credential] - 2 Weeks
--- NOTE | 2025-01-04 13:22 | ANESTHESIA POST OP EVALUATION ---
Anesthesia Post Eval Post Anesthesia Eval Vitals: Last Vital Signs Temp 36.4 C L 12/31/24 08:26 Pulse 83 12/31/24 08:26 Resp 16 12/31/24 08:26 BP 106/65 12/31/24 08:26 Pulse Ox 97 12/31/24 08:26 O2 Flow Rate 2 12/27/24 11:10
== END 2024-12-31 12:15 | disposition home or self-care (01) | DRG 853 ==
LOC: ED 21:10 → MS3 12-20 10:21 → MS2 12-21 18:37
PROVIDERS: ADMIT Surgery; ATTEND Surgery
DX: B00.9 Herpesviral infection, unspecified; I10 Essential (primary) hypertension; Z79.899 Other long term (current) drug therapy; N17.9 Acute kidney failure, unspecified; A41.4 Sepsis due to anaerobes; K35.33 Acute appendicitis with perforation, localized peritonitis, and gangrene, with abscess; F17.200 Nicotine dependence, unspecified, uncomplicated

== ENCOUNTER 2025-01-17 13:38 | Inpatient (IN) ==
[2025-01-17 14:05] LABS: BASOPHILS % (AUTO) 0.2 %; EOSINOPHILS # (AUTO) 0.5 10^3/uL (0.0-0.7); EOSINOPHILS % (AUTO) 4.8 %; HCT - HEMATOCRIT 33.1 % (37.0-47.0); HGB - HEMOGLOBIN 10.7 g/dL (12.0-16.0); LYMPHOCYTES # (AUTO) 2.3 10^3/uL (1.5-3.5); LYMPHOCYTES % (AUTO) 20.4 %; MEAN CORPUSCULAR HEMOGLOBIN 29.6 pg (27.0-31.0); MEAN CORPUSCULAR HGB CONC 32.3 g/dL (32.0-36.0); MEAN CORPUSCULAR VOLUME 91.4 fL (81.0-99.0); MEAN PLATELET VOLUME 9.6 fL (7.9-10.8); MONOCYTES # (AUTO) 0.5 10^3/uL (0.0-1.0); MONOCYTES % (AUTO) 4.3 %; NEUTROPHILS # (AUTO) 7.8 10^3/uL (1.5-6.6); PLT - PLATELET COUNT 416 10^3/uL (130-450); RED BLOOD COUNT 3.62 10^6/uL (4.20-5.40); RED CELL DISTRIBUTION WIDTH 14.1 % (12.0-15.0); WHITE BLOOD COUNT 11.2 x10^3/uL (4.8-10.8)
[2025-01-17 14:21] LABS: ALBUMIN 3.6 g/dL (3.2-5.5); BILIRUBIN,TOTAL 0.2 mg/dL (0.2-1.0); CALCIUM 8.9 mg/dL (8.5-10.3); CREATININE 1.4 mg/dL (0.6-1.3); POTASSIUM 4.2 mmol/L (3.5-4.5); TOTAL PROTEIN 7.1 g/dL (6.4-8.9)
[2025-01-17 14:22] LABS: BILIRUBIN,URINE SMALL (NEGATIVE); GLUCOSE, URINE (UA) NEGATIVE (NEGATIVE); KETONES,URINE (UA) TRACE mg/dL (NEGATIVE); LEUKOCYTE ESTERASE, URINE NEGATIVE (NEGATIVE); NITRITE,URINE NEGATIVE (NEGATIVE); OCCULT BLOOD,URINE TRACE-INTA (NEGATIVE); PROTEIN,URINE 100 mg/dL (NEGATIVE); UROBILINOGEN,URINE 0.2 (NORMAL) E.U./dL (NORMAL)
[2025-01-17 14:24] LABS: CLARITY,URINE CLOUDY (CLEAR)
[2025-01-17 14:33] LABS: BACTERIA,URINE Moderate /HPF (None Seen); SQUAMOUS EPITHELIAL CELL,UR MOD Squamous (<= Few)
[2025-01-17] MEDS: SODIUM CHLORIDE 0.9% 1,000 ML IV STA ×2 (15:08→15:53)
--- NOTE | 2025-01-17 15:31 | ED Physician Documentation ---
History of Present Illness Stated complaint Stated Complaint: MD REFERRAL Chief complaint Chief Complaint: Abd Pain History obtained from History obtained from: Patient History of Present Illness Pain level max: 5 Pain level now: 5 Additonal information Additional information: Patient is a 54-year-old female who is sent over from the general surgery clinic. She had a perforated appendicitis with a laparoscopic washout about a month ago. Has had abdominal cramping, pain and decreased appetite since that time. Has had some diarrhea as well. She is currently on omeprazole and Zofran. She states the only thing she can eat is Cheerios. She states today she saw Dr. Connors and was sent here because she noted a full body rash that star raji a few days ago. Unknown cause. She states that she also feels lightheaded and dizzy with standing. Also feels fatigued. No fevers. No cough. No congestion. Review of Systems Constitutional Denies: Fever or Chills Gastrointestinal Denies: Abdominal pain, Nausea or Vomiting Genitourinary Denies: Painful urination, Urinary frequency or Urinary urgency Musculoskeletal Denies: Back pain Meds/Allgy Home Medications Ambulatory Orders Medication Instructions Recorded Confirmed acyclovir 400 mg tablet 400 mg PO DAILY 12/20/24 12/20/24 cetirizine 10 mg capsule (All Day 10 mg PO BID PRN allergy symptoms 12/20/24 12/20/24 Allergy (cetirizine)) lisinopril 20 1 tab PO DAILY 12/20/24 12/20/24 mg-hydrochlorothiazide 25 mg tablet ibuprofen 600 mg tablet 600 mg PO Q6HR #60 tabs 12/31/24 ondansetron 4 mg disintegrating 4 mg translingual Q6HR PRN Nausea 12/31/24 tablet / Vomiting #10 tabs ondansetron 4 mg disintegrating 4 mg PO BID PRN nausea and 01/10/25 01/10/25 tablet vomiting #30 tabs Allergies Allergies Allergy/AdvReac Type Severity Reaction Status Date / Time acetaminophen (From Tylenol) Allergy Severe Pancreatiti Verified 01/17/25 13:42 s amoxicillin (From Augmentin) Allergy Mild Nausea Verified 01/17/25 13:42 clavulanic acid (From Allergy Mild Nausea Verified 01/17/25 13:42 Augmentin) hydrocodone Allergy Mild Hives Verified 01/17/25 13:42 midazolam (From Versed) Allergy Mild Unknown Verified 01/17/25 13:42 morphine Allergy Mild Hallucinati Verified 01/17/25 13:42 ons sulfamethoxazole (From Allergy Mild Unknown Verified 01/17/25 13:42 Bactrim) tramadol Allergy Mild Hallucinati Verified 01/17/25 13:42 ons trimethoprim (From Bactrim) Allergy Mild Unknown Verified 01/17/25 13:42 PFSH Active Problems All Active Problems (Updated 01/17/25 @ 19:26 by Al Nam MD) Postoperative abdominal pain (Acute) Ileus (Acute) Postoperative abdominal pain with fever (Acute) Medical History Medical History (Updated 01/17/25 @ 19:26 by Al Nam MD) HSV infection HTN (hypertension) History of acute pancreatitis (~2016) 2/2 tylenol Surgical History Surgical History (Updated 12/31/24 @ 09:18 by Marilee Connors DO) History of laparoscopic appendectomy (~12/27/24) History of tonsillectomy History of ovarian cystectomy History of tubal ligation History of Social History Social History Smoking Status: Current every day smoker Patient requests smoking cessation consult: No Relationship: Level: Independent Do you feel safe in your home environment?: Yes Suffered physical, verbal, emotional, or financial abuse?: No POLST Patient has POLST: No POLST Status: Full Code Exam Constitutional normal general appearance and no apparent distress HENMT oropharynx normal moist mucous membranes Eyes PERRL Neck/C-Spine visual inspection normal Respiratory breath sounds equal bilaterally, normal respiratory effort and clear to auscultation bilaterally Cardiovascular normal heart rate noted and regular rhythm noted Gastrointestinal abdomen normal to inspection and abdomen soft to palpation Mild tenderness to palpation in the right lower quadrant. No peritoneal signs. Has a small firm area just inferior to the umbilicus, but normal overlying skin. no signs of infection. Incisions do not show signs of infection. Genitourinary no CVA tenderness Extremities no edema Neurology speech normal Psychiatry mental status grossly normal and oriented x3 Skin skin color normal Diffuse body wide. Exanthem, macular. Blanches easily. No pustules or vesicles. No signs of secondary infection, mainly over the chest, abdomen, back, and bilateral lower extremities. Results Vitals Vitals: Vital Signs - 24 hr 01/17/25 13:42 01/17/25 15:48 01/17/25 17:00 Temperature 36.4 C L 36.5 C Temperature Source Oral Tympanic Pulse Rate 92 63 60 Respiratory Rate 18 17 16 Blood Pressure 101/75 147/80 H 140/80 H O2 Saturation 97 99 100 O2 Source Room air Room air Room air Pain Intensity 4 2 01/17/25 19:00 Temperature 36.8 C Temperature Source Tympanic Pulse Rate 88 Respiratory Rate 16 Blood Pressure 128/80 O2 Saturation 98 O2 Source Room air Pain Intensity 2 Oxygen O2 Source Room air Labs Labs: Laboratory Tests 01/17/25 01/17/25 13:50 14:00 WBC 11.2 H RBC 3.62 L Hgb 10.7 L Hct 33.1 L MCV 91.4 MCH 29.6 MCHC 32.3 RDW 14.1 Plt Count 416 MPV 9.6 Neut # (Auto) 7.8 H Lymph # (Auto) 2.3 [place] # (Auto) 0.5 Eos # (Auto) 0.5 Baso # (Auto) 0.0 Absolute Nucleated RBC 0.00 Nucleated RBC % 0.0 Sodium 134 L Potassium 4.2 Chloride 105 Carbon Dioxide 22 Anion Gap 7.0 BUN 29 H Creatinine 1.4 H Estimated GFR (MDRD) 39 L Glucose 125 H Calcium 8.9 Total Bilirubin 0.2 AST 12 ALT 12 Alkaline Phosphatase 63 Total Protein 7.1 Albumin 3.6 Globulin 3.5 Albumin/Globulin Ratio 1.0 Lipase 16 Urine Color YELLOW Urine Clarity CLOUDY Urine pH 6.0 Ur Specific Sawyer >=1.030 H Urine Protein 100 H Urine Glucose (UA) NEGATIVE Urine Ketones TRACE Urine Occult Blood TRACE-INTA Urine Nitrite NEGATIVE Urine Bilirubin SMALL H Urine Urobilinogen 0.2 (NORMAL) Ur Leukocyte Esterase NEGATIVE Urine RBC 6-10 H Urine WBC 6-10 H Ur Squamous Epith Cells MOD Squamous H Urine Bacteria Moderate H Ur Microscopic Review INDICATED Urine Culture Comments NOT INDICATED Rads (name of study) CT abd pelvis: Relevant Findings:: Final report received PD Medical Decision Making ED course Complexity details: reviewed results, re-evaluated patient, considered differential, d/w patient and d/w jd edwards consultant ED course: Patient with significant dehydration, given IV fluids, and feels better. She still has a mildly elevated white blood cell count. She also has a diffuse body wide macular exanthem. Blanches easily. Given IV Benadryl. Unclear etiology. No pustules or vesicles. Patient feels better after IV fluids and Benadryl. She is able to drink, but even with small sips, develops cramping in her abdomen. Discussed with Doctor. Connors and recommends a repeat CT with IV and oral contrast. This was performed. Patient has a possible retained portion of her previously perforated appendix with a possible appendicolith. Given IV cipro and Flagyl, no evidence of anaphylaxis. The rash is macular in nature and blanches easily. Unclear etiology of the rash. We will admit the patient with IV fluids and IV antibiotics. Doctor Waylon to determine need and timing of OR for possible residual appendix of appendicolith. This document was made in part using voice recognition software. While efforts are made to proofread this document, sound alike and grammatical errors may occur. Discharge Plan Discharge Patient Disposition: ED Place in Observation Condition: Stable Clinical Impression: Ileus, Postoperative abdominal pain
[2025-01-17] MEDS: DICYCLOMINE 10 MG CAPSULE PO STA (15:41)
[2025-01-17] MEDS: diphenhydrAMINE INJ 50 MG/ML VIAL IVP STA (15:42)
[2025-01-17] MEDS ORDERED: DIATRIZOATE MEGLU/DIATRIZO SOD 30 ML BOTTLE PO ONE (17:09)
[2025-01-17] MEDS ORDERED: iohexoL-300 100 ML VIAL ONE (17:09)
[2025-01-17] MEDS: iohexoL-300 100 ML VIAL IVP ONE (18:34)
[2025-01-17] MEDS: DIATRIZOATE MEGLU/DIATRIZO SOD 30 ML BOTTLE PO ONE (18:35)
[2025-01-17] MEDS: ONDANSETRON 4 MG/2 ML VIAL IVP STA (18:52)
--- NOTE | 2025-01-17 19:09 | CT Report ---
PROCEDURE: CT Abdomen/Pelvis W INDICATIONS: cont pain s/p perf appendicitis CONTRAST: 100 ML OMNI TECHNIQUE: After the administration of intravenous contrast, a CT scan of the abdomen and pelvis was performed. Images were recorded and evaluated at appropriate window settings. Reformats: coronal and sagittal. F or radiation dose reduction, the following was used: automated exposure control, adjustment of mA and /or kV according to patient size. COMPARISON: 01/11/2025 FINDINGS: Image quality: Diagnostic. Lower chest: No pleural effusion or consolidation. Liver: No solid mass. Gallbladder: No radiopaque stones or wall thickening. Biliary tree: No intrahepatic or extrahepatic dilation, accounting for age. Spleen: No splenomegaly. Pancreas: No pancreatic ductal dilation. Adrenals: No adrenal nodule. Kidneys and ureters: No hydronephrosis. No renal cystic lesion which requires follow up. No solid mas s. Stomach, bowel and peritoneum: No significant change to right lower quadrant, calcification containin g small phlegmon along the right psoas muscle. Moderate pericecal inflammation. Mildly diminished com pared to prior. Several anterior small bowel loops remains slightly dilated and demonstrate air-fluid levels. The stomach is decompressed. There is mild persistent inflammation and a decompressed bowel loop coursing from the left upper to the right lower quadrant as well as mildly inflamed terminal ile um. Colon is unremarkable. No free air or significant free pelvic fluid. Lymph nodes: No central or retroperitoneal adenopathy. Vessels: Normal caliber abdominal aorta, IVC, and portal vein. Patent portal vein. PELVIS Reproductive organs: Hysterectomy. Bladder: Decompressed urinary bladder. Pelvic lymph nodes: No pelvic adenopathy by size criteria. Bones: No aggressive osseous abnormality. Other: In the infraumbilical anterior abdominal wall at the midline, there are postsurgical changes i ncluding a tiny fluid collection with air. IMPRESSION: Persistent right lower quadrant inflammation involving a few small bowel loops and what may be residu al appendix tissue containing appendicolith. No percutaneously drainable abscess or significant free fluid. Inflammation is likely causing ileus or partial obstruction. No other significant changes. Reviewed by: Kristie Barajas MD on 01/17/2025 7:08 PM PDT Approved by: Kristie Barajas MD on 01/17/2025 7:08 PM PDT Station ID: [id number]
[2025-01-17] MEDS: CIPROFLOXACIN 400 MG/200 ML 400 MG/200 ML BAG IV STA (19:42)
[2025-01-17] MEDS: metroNIDAZOLE 500 MG/100 ML 500 MG/100 ML BAG IV ONE (19:42)
[2025-01-17] MEDS: metroNIDAZOLE 500 MG/100 ML 500 MG/100 ML BAG IV SCH (21:32)
[2025-01-17] MEDS: CIPROFLOXACIN 400 MG/200 ML 400 MG/200 ML BAG IV SCH (21:32)
[2025-01-17] MEDS: LACTATED RINGERS 1,000 ML IV SCH (21:42)
--- NOTE | 2025-01-17 22:00 | HISTORY & PHYSICAL EXAMINATION ---
History of Present Illness History of Present Illness HPI Comment/Other: 54F s/p recent hospitalization (12/20-) for perforated appendicitis with bacteremia, that failed nonoperative management and ultimately underwent lap appy on 12/27. Last week she was not doing well, with diarrhea and subjective f/c and poor PO intake. C diff testing was negative, and a CT did not have actionable findings. She returned to clinic today looking poorly, reporting near syncopal event at home in shower this AM, and continued/minimal poor PO intake at home. The diarrhea and f/c have improved. She has developed a total body rash. I sent her from the clinic to ED for labs/IVF/IV benadryl. In the ER she received 2L IVF after labs confirmed hypovolemia. She was still having significant abdominal cramping after trial of bentyl. I decided to rescan her with IV/PO contrast - findings suggest a piece of retained appendix within the abdomen. Meds/Allgy Home Medications Ambulatory Orders Medication Instructions Recorded Confirmed acyclovir 400 mg tablet 400 mg PO DAILY 12/20/24 12/20/24 cetirizine 10 mg capsule (All Day 10 mg PO BID PRN allergy symptoms 12/20/24 12/20/24 Allergy (cetirizine)) lisinopril 20 1 tab PO DAILY 12/20/24 12/20/24 mg-hydrochlorothiazide 25 mg tablet ibuprofen 600 mg tablet 600 mg PO Q6HR #60 tabs 12/31/24 ondansetron 4 mg disintegrating 4 mg translingual Q6HR PRN Nausea 12/31/24 tablet / Vomiting #10 tabs ondansetron 4 mg disintegrating 4 mg PO BID PRN nausea and 01/10/25 01/10/25 tablet vomiting #30 tabs Allergies Allergies Allergy/AdvReac Type Severity Reaction Status Date / Time acetaminophen (From Tylenol) Allergy Severe Pancreatiti Verified 01/17/25 13:42 s amoxicillin (From Augmentin) Allergy Mild Nausea Verified 01/17/25 13:42 clavulanic acid (From Allergy Mild Nausea Verified 01/17/25 13:42 Augmentin) hydrocodone Allergy Mild Hives Verified 01/17/25 13:42 midazolam (From Versed) Allergy Mild Unknown Verified 01/17/25 13:42 morphine Allergy Mild Hallucinati Verified 01/17/25 13:42 ons sulfamethoxazole (From Allergy Mild Unknown Verified 01/17/25 13:42 Bactrim) tramadol Allergy Mild Hallucinati Verified 01/17/25 13:42 ons trimethoprim (From Bactrim) Allergy Mild Unknown Verified 01/17/25 13:42 PFSH Active Problems All Active Problems (Updated 01/17/25 @ 21:58 by Marilee Connors DO) Complication, postoperative infection (Acute) Postoperative abdominal pain (Acute) Ileus (Acute) Postoperative abdominal pain with fever (Acute) Medical History Medical History (Updated 01/17/25 @ 21:58 by Marilee Connors DO) HSV infection HTN (hypertension) History of acute pancreatitis (~2016) 2/2 tylenol Surgical History Surgical History (Updated 12/31/24 @ 09:18 by Marilee Connors DO) History of laparoscopic appendectomy (~12/27/24) History of tonsillectomy History of ovarian cystectomy History of tubal ligation History of Social History Social History Smoking Status: Current every day smoker Patient requests smoking cessation consult: No Relationship: Level: Independent Do you feel safe in your home environment?: Yes Suffered physical, verbal, emotional, or financial abuse?: No POLST Patient has POLST: No POLST Status: Full Code Review of Systems Status of ROS: 10 or more systems reviewed and unremarkable except as noted in history and below Exam Constitutional ill appearing HENMT normocephalic Eyes PERRL and EOMs intact bilaterally Neck/C-Spine visual inspection normal Respiratory breath sounds equal bilaterally Cardiovascular normal heart rate noted (low grade tachycardia) and regular rhythm noted Gastrointestinal abdomen soft to palpation and nondistended right sided ttp, not peritoneal Extremities normal to inspection Neurology no movement abnormality noted Psychiatry mental status grossly normal and oriented x3 Skin skin color normal Conclusion/Plan Problem List (1) Complication, postoperative infection: Plan: 54yoF s/p laparoscopic appendectomy on 12/27/24 for perforated appendicitis and bacteroides bacteremia that failed 1 week of inpatient nonoperative management with IV cipro/flagyl. Completed 12d IV abx, including 4d following source control. Not recovering well at home and found of repeat ED evaluation to be hypovolemic with mild leukocytosis and likely retained portion of the perforated appendix acting as nidus of deep space postoperative infection with associated ileus. - admit - IV cipro/flagyl - NPO/IVF - Tomorrow plan to return to OR for laparoscopic abdominal washout, possible open Marilee Connors DO, FACS General Surgeon, Rupesh Lab Results 01/17/25 14:00 01/17/25 14:00 Diagnostic Imaging Results Diagnostic Imaging Results: positive Read contemporaneously Diagnostic Imaging Results Comments: PROCEDURE: CT Abdomen/Pelvis W INDICATIONS: cont pain s/p perf appendicitis CONTRAST: 100 ML OMNI TECHNIQUE: After the administration of intravenous contrast, a CT scan of the abdomen and pelvis was performed. Images were recorded and evaluated at appropriate window settings. Reformats: coronal and sagittal. For radiation dose reduction, the following was used: automated exposure control, adjustment of mA and/or kV according to patient size. COMPARISON: 01/11/2025 FINDINGS: Image quality: Diagnostic. Lower chest: No pleural effusion or consolidation. Liver: No solid mass. Gallbladder: No radiopaque stones or wall thickening. Biliary tree: No intrahepatic or extrahepatic dilation, accounting for age. Spleen: No splenomegaly. Pancreas: No pancreatic ductal dilation. Adrenals: No adrenal nodule. Kidneys and ureters: No hydronephrosis. No renal cystic lesion which requires follow up. No solid mass. Stomach, bowel and peritoneum: No significant change to right lower quadrant, calcification containing small phlegmon along the right psoas muscle. Moderate pericecal inflammation. Mildly diminished compared to prior. Several anterior small bowel loops remains slightly dilated and demonstrate air-fluid levels. The stomach is decompressed. There is mild persistent inflammation and a decompressed bowel loop coursing from the left upper to the right lower quadrant as well as mildly inflamed terminal ileum. Colon is unremarkable. No free air or significant free pelvic fluid. Lymph nodes: No central or retroperitoneal adenopathy. Vessels: Normal caliber abdominal aorta, IVC, and portal vein. Patent portal vein. PELVIS Reproductive organs: Hysterectomy. Bladder: Decompressed urinary bladder. Pelvic lymph nodes: No pelvic adenopathy by size criteria. Bones: No aggressive osseous abnormality. Other: In the infraumbilical anterior abdominal wall at the midline, there are postsurgical changes including a tiny fluid collection with air. IMPRESSION: Persistent right lower quadrant inflammation involving a few small bowel loops and what may be residual appendix tissue containing appendicolith. No percutaneously drainable abscess or significant free fluid. Inflammation is likely causing ileus or partial obstruction. No other significant changes. Reviewed by: Kristie Barajas MD on 01/17/2025 7:08 PM PDT
--- NOTE | 2025-01-17 23:57 | ANESTHESIA PROCEDURE NOTE ---
Anesth Central Line Template Central Line Other Info/Details: Attempted to place a PICC line. Patient has limited veins to access. Was able to get into the right brachial vein, but could not advance the wire. I scanned the left arm and she may have what looks like a thrombus in the left basilic vein. I placed a US guided PIV in the right AC after 4 attempts.
[2025-01-18] MEDS: diphenhydrAMINE INJ 50 MG/ML VIAL IVP PRN (00:06)
[2025-01-18] MEDS: SODIUM CHLORIDE FLUSH 0.9% 10 ML SYRINGE IVP SCH (00:07)
[2025-01-18] MEDS: HYDROmorphone 1 MG/ML CARPUJECT IVP PRN (00:18)
[2025-01-18] MEDS: PROCHLORPERAZINE 10 MG/2 ML VIAL IVP PRN (00:18)
[2025-01-18 06:10] LABS: BASOPHILS % (AUTO) 0.2 %; EOSINOPHILS # (AUTO) 0.5 10^3/uL (0.0-0.7); EOSINOPHILS % (AUTO) 2.8 %; HCT - HEMATOCRIT 32.6 % (37.0-47.0); HGB - HEMOGLOBIN 10.4 g/dL (12.0-16.0); LYMPHOCYTES # (AUTO) 1.3 10^3/uL (1.5-3.5); LYMPHOCYTES % (AUTO) 7.2 %; MEAN CORPUSCULAR HEMOGLOBIN 29.2 pg (27.0-31.0); MEAN CORPUSCULAR HGB CONC 31.9 g/dL (32.0-36.0); MEAN CORPUSCULAR VOLUME 91.6 fL (81.0-99.0); MEAN PLATELET VOLUME 9.6 fL (7.9-10.8); MONOCYTES # (AUTO) 0.6 10^3/uL (0.0-1.0); MONOCYTES % (AUTO) 3.6 %; NEUTROPHILS # (AUTO) 14.9 10^3/uL (1.5-6.6); NEUTROPHILS % (AUTO) 85.6 %; PLT - PLATELET COUNT 393 10^3/uL (130-450); RED BLOOD COUNT 3.56 10^6/uL (4.20-5.40); RED CELL DISTRIBUTION WIDTH 14.2 % (12.0-15.0); WHITE BLOOD COUNT 17.4 x10^3/uL (4.8-10.8)
[2025-01-18 06:31] LABS: CALCIUM 8.4 mg/dL (8.5-10.3); MAGNESIUM 1.9 mg/dL (1.7-2.3); PHOSPHORUS 3.6 mg/dL (2.5-5.0)
[2025-01-18] MEDS: oxyCODONE 5 MG TABLET PO PRN (08:09)
[2025-01-18] MEDS: ONDANSETRON ODT 4 MG TABLET TL PRN (08:10)
[2025-01-18] MEDS: diphenhydrAMINE 25 MG CAPSULE PO PRN (08:10)
[2025-01-18] MEDS ORDERED: PROPOFOL 200 MG/20 ML VIAL IVP ONE (12:12)
[2025-01-18] MEDS ORDERED: LIDOCAINE-PF 2% 10 ML AMP SUBQ ONE (12:12)
[2025-01-18] MEDS ORDERED: ROCURONIUM 50 MG/5 ML VIAL ONE ×3 (12:13→15:08)
[2025-01-18] MEDS ORDERED: fentaNYL 100 MCG/2 ML VIAL ONE ×6 (12:13→19:56)
[2025-01-18] MEDS ORDERED: METOCLOPRAMIDE 10 MG/2 ML VIAL IVP PRN (12:23)
[2025-01-18] MEDS ORDERED: ATROPINE ABBOJECT 1 MG/10 ML SYRINGE IVP PRN (12:23)
[2025-01-18] MEDS ORDERED: MORPHINE 2 MG/ML CARPUJECT IVP PRN (12:23)
[2025-01-18] MEDS ORDERED: NALOXONE 0.4 MG/ML VIAL IVP PRN (12:23)
[2025-01-18] MEDS ORDERED: ePHEDrine 50 MG/ML VIAL IVP PRN (12:23)
--- NOTE | 2025-01-18 12:23 | ANESTHESIA PROCEDURE NOTE ---
Pre-Anesthesia VS, & Labs Diagnosis Surgical Diagnosis:: abd pain s/p perforated appendectomy Procedure Procedure: diagnostic laparoscopy Vitals Vital Signs: Temp Pulse Resp BP Pulse Ox 37.6 C 99 18 95/56 L 98 01/18/25 08:10 01/18/25 08:10 01/18/25 08:10 01/18/25 08:10 01/18/25 08:10 NPO NPO: >8 hours Is Patient ?: No Lab Results Current Lab Results: Laboratory Tests 01/18/25 05:46: WBC 17.4 H, RBC 3.56 L, Hgb 10.4 L, Hct 32.6 L, MCV 91.6, MCH 29.2, MCHC 31.9 L, RDW 14.2, Plt Count 393, MPV 9.6, Neut # (Auto) 14.9 H, Lymph # (Auto) 1.3 L, Isabela # (Auto) 0.6, Eos # (Auto) 0.5, Baso # (Auto) 0.0, Absolute Nucleated RBC 0.00, Nucleated RBC % 0.0, Sodium 135, Potassium 4.0, Chloride 110, Carbon Dioxide 19 L, Anion Gap 6.0, BUN 26 H, Creatinine 1.0, Estimated GFR (MDRD) 58 L, Glucose 121 H, Calcium 8.4 L, Phosphorus 3.6, Magnesium 1.9 01/17/25 14:00: WBC 11.2 H, RBC 3.62 L, Hgb 10.7 L, Hct 33.1 L, MCV 91.4, MCH 29.6, MCHC 32.3, RDW 14.1, Plt Count 416, MPV 9.6, Neut # (Auto) 7.8 H, Lymph # (Auto) 2.3, Isabela # (Auto) 0.5, Eos # (Auto) 0.5, Baso # (Auto) 0.0, Absolute Nucleated RBC 0.00, Nucleated RBC % 0.0, Sodium 134 L, Potassium 4.2, Chloride 105, Carbon Dioxide 22, Anion Gap 7.0, BUN 29 H, Creatinine 1.4 H, Estimated GFR (MDRD) 39 L, Glucose 125 H, Calcium 8.9, Total Bilirubin 0.2, AST 12, ALT 12, Alkaline Phosphatase 63, Total Protein 7.1, Albumin 3.6, Globulin 3.5, Albumin/Globulin Ratio 1.0, Lipase 16 Lab results reviewed: Yes 01/18/25 05:46 01/18/25 05:46 Meds/Allgy Home Medications Ambulatory Orders Medication Instructions Recorded Confirmed acyclovir 400 mg tablet 400 mg PO DAILY 12/20/24 12/20/24 cetirizine 10 mg capsule (All Day 10 mg PO BID PRN allergy symptoms 12/20/24 12/20/24 Allergy (cetirizine)) lisinopril 20 1 tab PO DAILY 12/20/24 12/20/24 mg-hydrochlorothiazide 25 mg tablet ibuprofen 600 mg tablet 600 mg PO Q6HR #60 tabs 12/31/24 ondansetron 4 mg disintegrating 4 mg translingual Q6HR PRN Nausea 12/31/24 tablet / Vomiting #10 tabs ondansetron 4 mg disintegrating 4 mg PO BID PRN nausea and 01/10/25 01/10/25 tablet vomiting #30 tabs Allergies Allergies Allergy/AdvReac Type Severity Reaction Status Date / Time acetaminophen (From Tylenol) Allergy Severe Pancreatiti Verified 01/17/25 13:42 s amoxicillin (From Augmentin) Allergy Mild Nausea Verified 01/17/25 13:42 clavulanic acid (From Allergy Mild Nausea Verified 01/17/25 13:42 Augmentin) hydrocodone Allergy Mild Hives Verified 01/17/25 13:42 midazolam (From Versed) Allergy Mild Unknown Verified 01/17/25 13:42 morphine Allergy Mild Hallucinati Verified 01/17/25 13:42 ons sulfamethoxazole (From Allergy Mild Unknown Verified 01/17/25 13:42 Bactrim) tramadol Allergy Mild Hallucinati Verified 01/17/25 13:42 ons trimethoprim (From Bactrim) Allergy Mild Unknown Verified 01/17/25 13:42 PFSH Active Problems All Active Problems (Updated 01/17/25 @ 22:04 by Marilee Connors DO) Nausea & vomiting (Acute) Complication, postoperative infection (Acute) Postoperative abdominal pain (Acute) Ileus (Acute) Postoperative abdominal pain with fever (Acute) Medical History Medical History (Updated 01/17/25 @ 22:04 by Marilee Connors DO) HSV infection HTN (hypertension) History of acute pancreatitis (~2016) 2/2 tylenol Surgical History Surgical History (Updated 12/31/24 @ 09:18 by Marilee Connors DO) History of laparoscopic appendectomy (~12/27/24) History of tonsillectomy History of ovarian cystectomy History of tubal ligation History of Social History Social History Smoking Status: Light tobacco smoker Number of Years Smoked: 30 How many cigarettes a day do you smoke? (20 cigarettes=1 Pk): 5 Patient requests smoking cessation consult: No Relationship: Level: Independent Do you feel safe in your home environment?: Yes Suffered physical, verbal, emotional, or financial abuse?: No POLST Patient has POLST: No POLST Status: Full Code Anesthesia Exam (Expanded) Exam General: Alert, Oriented x3 and Cooperative Dental: WNL Mouth Openin Fingerbreadth Neck Mobility: Normal Mallampati classification: II Thyromental Distance: 4-6 cm Respiratory: Lungs clear and Normal breath sounds Cardiovascular: Regular rate Neurological: Normal speech Mental/Cognitive Status: Alert/Oriented X3 and Normal for patient Cognitive Status: Within normal limits Plan Problem List (1) Complication, postoperative infection: Plan: 54yoF s/p laparoscopic appendectomy on 12/27/24 for perforated appendicitis and bacteroides bacteremia that failed 1 week of inpatient nonoperative management with IV cipro/flagyl. Completed 12d IV abx, including 4d following source control. Not recovering well at home and found of repeat ED evaluation to be hypovolemic with mild leukocytosis and likely retained portion of the perforated appendix acting as nidus of deep space postoperative infection with associated ileus. - admit - IV cipro/flagyl - NPO/IVF - Tomorrow plan to return to OR for laparoscopic abdominal washout, possible open Marilee Connors DO, FACS General Surgeon, [facility] Plan Anesthesia Type: General Consent for Procedure(s) Verified and Reviewed: Yes Code Status: Attempt Resuscitation ASA Classification ASA classification: 2-Mild systemic disease Is this case an emergency?: No
--- NOTE | 2025-01-18 12:25 | PROVIDER PROGRESS NOTE ---
Subjective General Admit Date: 01/17/25 Procedure Date: 12/27/24 Post Op Days: 22 Procedure Performed: lap appy (prior admission) Other Other Information/Narrative: Feeling worse with increased nausea overnight. WBC up to 17 today. Soft SBP to 95 this AM. Blew out IV. 4 attempts at PICC last night and 3 this morning by 3 different CRNAs have been unsucessful. Review of Systems Status of ROS: 10 or more systems reviewed and unremarkable except as noted in history and below Exam Constitutional ill appearing HENMT normocephalic Eyes PERRL and EOMs intact bilaterally Neck/C-Spine visual inspection normal Respiratory breath sounds equal bilaterally Cardiovascular normal heart rate noted (low grade tachycardia) and regular rhythm noted Gastrointestinal abdomen soft to palpation and nondistended right sided ttp, not peritoneal Extremities normal to inspection Neurology no movement abnormality noted Psychiatry mental status grossly normal and oriented x3 Skin skin color normal ABX Reporting Has patient been on IV antibiotics over the past 48 hours?: Yes Impression/Plan Problem List (1) Complication, postoperative infection: Plan: 54yoF s/p laparoscopic appendectomy on 12/27/24 for perforated appendicitis and bacteroides bacteremia that failed 1 week of inpatient nonoperative management with IV cipro/flagyl. Completed 12d IV abx, including 4d following source control. Not recovering well at home and found of repeat ED evaluation to be hypovolemic with mild leukocytosis and likely retained portion of the perforated appendix acting as nidus of deep space postoperative infection with associated ileus. Now developing signs of sepsis due to retained intraabdominal infection. - IV cipro/flagyl - NPO/IVF - to OR today for diagnostic laparoscopy, possible exploratory laparotomy, abdominal washout, possible bowel resection. Discussed increased risks of surgery associated with reoperative surgery and ongoing infection. She understands and agrees. Will place central line in OR due to lack of IV or PICC access. Marilee Connors DO, FACS General Surgeon, Located within [facility]
[2025-01-18] MEDS ORDERED: BUPIVACAINE 0.25% PF 10 ML VIAL ONE (12:36)
[2025-01-18] MEDS ORDERED: LIDOCAINE 1%-EPI 1:100000 20 ML MDV ONE (12:36)
[2025-01-18] MEDS ORDERED: PHENYLEPHRINE HCL 0.5 MG/5 ML AMPULE ONE (13:17)
[2025-01-18] MEDS ORDERED: PHENYLEPHRINE 10 MG/ML VIAL ONE (13:19)
[2025-01-18] MEDS ORDERED: ePHEDrine 50 MG/ML VIAL IVP ONE (13:20)
[2025-01-18] MEDS ORDERED: CIPROFLOXACIN 400 MG/200 ML 400 MG/200 ML BAG IV ONE (13:36)
[2025-01-18] MEDS ORDERED: metroNIDAZOLE 500 MG/100 ML 500 MG/100 ML BAG ONE (13:36)
[2025-01-18] MEDS ORDERED: DEXAMETHASONE 4 MG/ML VIAL ONE (13:59)
[2025-01-18] MEDS ORDERED: ONDANSETRON 4 MG/2 ML VIAL ONE ×2 (13:59→19:44)
--- NOTE | 2025-01-18 14:02 | PHARMACY PROGRESS NOTE ---
Best Possible Medication History Admit Date and Time: 01/17/252007 Home Medications Medication Instructions Recorded Confirmed Type acyclovir 400 mg tablet 400 mg PO DAILY 12/20/24 01/18/25 History cetirizine 10 mg capsule (All Day 10 mg PO BID PRN allergy symptoms 12/20/24 01/18/25 History Allergy (cetirizine)) lisinopril 20 1 tab PO DAILY 12/20/24 01/18/25 History mg-hydrochlorothiazide 25 mg tablet ondansetron 4 mg disintegrating 4 mg translingual Q6HR PRN Nausea 12/31/24 01/18/25 Rx tablet / Vomiting #10 tabs Processed by: Pharmacy Medications reviewed in ED?: Yes Medication History completed: Yes Patient Interview: Pt unable to participate Secondary Source(s): Insurance records [facility] Statement: As the person ultimately responsible for medication therapy, providers are able to order a medication from an existing home medication list in [facility] via the "Reconcile Routine" prior to Confirmation of that medication by marketing support coordinator. Such practice is discouraged except when the physician, in their clinical judgment, deems that a medical need exists for a medication without regard to previous use.
[2025-01-18] MEDS ORDERED: SEVOFLURANE 250 ML LIQUID INH ONE (14:27)
[2025-01-18] MEDS ORDERED: SUGAMMADEX 200 MG/2 ML VIAL IVP ONE (18:09)
[2025-01-18] MEDS: LACTATED RINGERS 1,000 ML IV SCH (19:10)
[2025-01-18] MEDS: fentaNYL 100 MCG/2 ML VIAL IVP PRN (19:13)
--- NOTE | 2025-01-18 19:28 | OPERATIVE REPORT ---
Operative Report General Admit Date: 01/17/25 Procedure Data: Operation Date: 01/18/25 12:00 Proposed Procedures p Diagnostic Laparoscopy(Not Applicable) - Marilee Connors DO Actual Procedures p Diagnostic Laparoscopy; OPEN ILEOCECECTOMY; LAPOROSCOPY LYSIS OF ADHESIONS >90 MINUTES(Not Applicable) - Marilee Connors, Central line placement Anesthesia Type General Case Staff Anesthesia Provider: Wanda Ureña Anesthesia Provider: Federico Jones Case Times Into Recovery: 01/18/25 19:10 Procedure Start: 01/18/25 13:42 Procedure End: 01/18/25 19:02 Time out: 01/18/25 13:41 Pre-Op Diagnosis: intraadbominal infection, possible retained appendix Post Op Diagnosis: right lower quadrant phlegmon involving large and small bowel Procedure Note Intake, IV Amount (ml): 2,800 Estimated Blood Loss (ml): 75 Output, Urine Amount (ml): 250 Pathology: ileocecectomy Indications: 54yoF s/p laparoscopic appendectomy on 12/27/24 for perforated appendicitis and bacteroides bacteremia that failed 1 week of inpatient nonoperative management with IV cipro/flagyl. Completed 12d IV abx, including 4d following source control. Not recovering well at home and found of repeat ED evaluation to be hypovolemic with mild leukocytosis and likely retained portion of the perforated appendix acting as nidus of deep space postoperative infection with associated ileus. Now developing signs of sepsis due to retained intraabdominal infection. Also unable to achieve IV or PICC access, thus needs central line. Findings: Large densely adherent phlegmon in the right lower quadrant involving multiple loops of small bowel, sigmoid colon, right adenexa, and scattered necrotic debris. Phlegmon adherent to anterior abdominal wall, right lateral abdominal wall, and densely adherent to retroperitoneum posteriorly. Via laparoscopic lysis of adhesions was able to separate loops of bowel, but unable to clear all necrotic debris particularly the posterior aspect against the retroperitoneum. Thus, conversion to lower midline incision to complete open ileocecectomy. Complications: none Other Other Information/Narrative: The patient was brought to the operating room with universal protocol observed throughout. A central line was placed by the anesthesia service. General anesthesia with endotracheal tube was induced by the anesthesia service. They were positioned supine on the operating room table with both arms tucked. A Meyer was placed. Cipro and Flagyl were administered. The abdomen was prepped and draped in standard sterile fashion. A timeout was performed with all members of the team being in agreement. Local anesthetic of 1% lidocaine with epinephrine mixed with Marcaine plain was injected into the prior infraumbilical incision, and the skin was opened sharply; there was no fluid, hematoma or infection in the subcutaneous space. Blunt dissection down to the level of the fascia was performed. The umbilical stalk was elevated and the fascia was incised sharply in a vertical orientation and the peritoneal cavity was entered bluntly with a Radha clamp. A 12 mm balloon trocar was placed. The abdomen was insufflated with CO2 gas to a pressure of 15 mmHg which the patient tolerated well. The laparoscope was inserted and visual inspection revealed no evidence of injury upon entry. The abdomen was inspected and a large phlegmon involving multiple bowel loops was present in the right lower quadrant and adherent to the anterior abdominal wall. Two additional 5mm trocars were placed under direct visualization: one in the left lower quadrant, and one in the epigastrium. Graspers were introduced into the abdomen. Careful lysis of adhesions using the LigaSure device, cold scissors, and careful blunt dissection was used to tease apart the loops of small bowel from the right lower quadrant phlegmon as well as from the abdominal wall. In doing so it was seen that the phlegmon involved multiple loops of small bowel as well as a large loop of the sigmoid colon. The right adnexa was also involved in the phlegmon. As the loops of bowel were teased apart, small bits of necrotic debris were found very densely adherent to bowel loops and mesentery within the phlegmon, consistent with the recent history of perforated appendicitis s/p laparoscopic appendectomy. I was unable to mobilize the phlegmon off of the retroperitoneum laparoscopically, however I could feel additional dense adhesion and collection deep to the phlegmon that prompted me to make a small lower abdominal midline laparotomy to complete mobilization of the phlegmon and an open ileocecectomy to ensure complete clearance of the nidus of infection. The infraumbilical and suprapubic incisions were connected by sharply incising the skin and opening the fascia with Bovie electrocautery. The abdomen was thus desufflated and trocars were removed. An Fabricio wound protector was placed. Using careful blunt dissection as well as Bovie electrocautery and LigaSure device, the remaining retroperitoneal adhesions to the phlegmon including the cecum were released. This did expose further necrotic debris that was removed. The right colon was mobilized off the lateral wall up to the low-lying hepatic flexure to allow enough length for an ileocolic anastomosis. The terminal ileum was divided with a blue load FOREST stapler 20 cm proximal to the ileocecal valve, removing portions of bowel that were quite scarred from the phlegmon involvement. The mesentery was divided progressing from the terminal ileum and past the cecum using the LigaSure device. The ileocolic pedicle was ligated with 0 silk suture stick tie. The right colon was divided with a 75 mm blue load FOREST stapler. The ileocecetomy specimen was passed off the field for pathology. The terminal ileum and right colon were brought together with no twisting of bowel. A 75 mm blue load [id number] functional end-to-end anastomosis was created. The lumen was inspected for hemostasis with a ring forcep. The common enterotomy was closed in a handsewn manner with a running 3-0 Vicryl suture followed by 3-0 silk Lembert sutures. The anastomosis was palpated and noted to be widely patent. Supporting stitches were placed at the end of the suture line with 3-0 silk. The mesentery was not closed. The anastomosis was returned into the abdomen. The abdomen was irrigated with 3L of warm normal saline. The abdomen was hemostatic. The small lower midline incision was closed with running 0 PDS suture x 2. The wound was irrigated with clean irrigant. Local anesthetic was injected. The skin was closed with trinh. A silver impregnated dressing was applied. The patient was extubated and awoken from general anesthesia. The meyer was left in place. An NGT was placed by anesthesia and palpated to confirm position within the stomach prior to closure. There were no complications. All sponge needle counts were correct. The patient was transferred to the PACU in good condition. Marilee Connors DO, FACS General Surgeon, Rupesh
[2025-01-18] MEDS ORDERED: HYDROmorphone 0.5 MG/0.5 ML SYRINGE ONE ×2 (19:35→20:10)
[2025-01-18] MEDS: HYDROmorphone 0.5 MG/0.5 ML SYRINGE IVP PRN (19:36)
[2025-01-18] MEDS: ONDANSETRON 4 MG/2 ML VIAL IVP PRN ×2 (19:45→22:00)
--- NOTE | 2025-01-18 19:54 | ANESTHESIA POST OP EVALUATION ---
Anesthesia Post Eval Post Anesthesia Eval Vitals: Last Vital Signs Temp 36.8 C 01/18/25 19:10 Pulse 86 01/18/25 19:50 Resp 15 01/18/25 19:50 BP 117/74 01/18/25 19:50 Pulse Ox 94 01/18/25 19:50 CV Function Including HR & BP: Stable Pain Control: Satisfactory Nausea & Vomiting: Addtional Therapies Ordered (NGT to LIWS) Mental Status: Baseline Respiratory Status: Airway Patent and Other (pain with coughing) Hydration Status: Satisfactory Anesthesia Complications: None
[2025-01-18] MEDS: KETOROLAC 15 MG/ML VIAL IVP SCH (20:51)
[2025-01-19] MEDS: CIPROFLOXACIN 400 MG/200 ML 400 MG/200 ML BAG IV SCH (00:50)
[2025-01-19] MEDS: LACTATED RINGERS 1,000 ML IV ONE ×2 (01:27→09:22)
[2025-01-19] MEDS: PHENOL THROAT SPRAY 177 ML MM PRN (02:18)
[2025-01-19 04:28] LABS: BASOPHILS % (AUTO) 0.2 %; EOSINOPHILS % (AUTO) 0.5 %; HCT - HEMATOCRIT 27.2 % (37.0-47.0); HGB - HEMOGLOBIN 8.6 g/dL (12.0-16.0); LYMPHOCYTES % (AUTO) 5.9 %; MEAN CORPUSCULAR HEMOGLOBIN 29.7 pg (27.0-31.0); MEAN CORPUSCULAR HGB CONC 31.6 g/dL (32.0-36.0); MEAN CORPUSCULAR VOLUME 93.8 fL (81.0-99.0); MEAN PLATELET VOLUME 9.4 fL (7.9-10.8); MONOCYTES % (AUTO) 4.6 %; PLT - PLATELET COUNT 290 10^3/uL (130-450); RED CELL DISTRIBUTION WIDTH 14.6 % (12.0-15.0); WHITE BLOOD COUNT 25.7 x10^3/uL (4.8-10.8)
[2025-01-19 04:33] LABS: ABNORMAL LYMPHS % (MANUAL) 0 %
[2025-01-19 04:36] LABS: MAGNESIUM 1.6 mg/dL (1.7-2.3)
[2025-01-19 04:42] LABS: CREATININE 1.3 mg/dL (0.6-1.3); POTASSIUM 4.5 mmol/L (3.5-4.5)
[2025-01-19 04:48] LABS: BAND NEUTROPHILS % (MANUAL) 10 %; LYMPHOCYTES # (MANUAL) 2.1 10^3/uL (1.5-3.5); LYMPHOCYTES % (MANUAL) 8 %; MONOCYTES # (MANUAL) 0.5 10^3/uL (0.0-1.0); NEUTROPHILS # (MANUAL) 23.1 10^3/uL (1.5-6.6); PLATELET ESTIMATE, MANUAL NORMAL (130-450,000) (NORMAL); PLATELET MORPHOLOGY NORMAL APPEARANCE (NORMAL); RBC MORPHOLOGY (MULTIPLE) NORMAL APPEARANCE (NORMAL); WBC MORPHOLOGY (MULTIPLE) NORMAL APPEARANCE (NORMAL)
[2025-01-19 04:49] LABS: DIFFERENTIAL COMMENT MANUAL DIFFERENTIAL
[2025-01-19] MEDS: PANTOPRAZOLE 40 MG VIAL IVP SCH (06:10)
[2025-01-19] MEDS: SODIUM CHLORIDE FLUSH 0.9% 10 ML SYRINGE IVP PRN (06:11)
[2025-01-19] MEDS: MAGNESIUM SULFATE 2 GRAM 2 GM/50 ML BAG IV ONE (09:23)
--- NOTE | 2025-01-19 11:23 | XRAY Report ---
PROCEDURE: XR Post Port Placement 1V CXR INDICATIONS: central line placement TECHNIQUE: One view of the chest was acquired. COMPARISON: Chest x-ray 12/25/2024 FINDINGS: Surgical changes and devices: Nasogastric tube is present projecting below the left hemidiaphragm. C entral venous catheter is present with distal tip projecting slightly to the left of midline of the t horacic spine. Lungs and pleura: No pleural effusions or pneumothorax. No consolidation. Mediastinum: Mediastinal contours appear normal. Heart size is enlarged. Bones and chest wall: No suspicious bony lesions. Overlying soft tissues appear unremarkable. IMPRESSION: Central line placement as above. Patient is rotated. Venous placement cannot be definitively confirme d on the basis of this exam. Recommend clinical correlation as well as repeat imaging as indicated. Reviewed by: Rebecca Figueroa MD on 01/19/2025 11:21 AM PDT Approved by: Rebecca Figueroa MD on 01/19/2025 11:21 AM PDT Station ID: [id number]
--- NOTE | 2025-01-19 15:04 | PROVIDER PROGRESS NOTE ---
Subjective General Admit Date: 01/17/25 Procedure Date: 01/18/25 Post Op Days: 1 Procedure Performed: lap BRIAN --> open ileocecectomy Other Other Information/Narrative: Preoperative nausea and discomfort has been replaced with incisional pain, ~6/10. Minimal NGT output since OR. No Flatus. UOP has been marginal since surgery and Creatinine is up 1.0 to 1.3. Was given 2.8L intraoperatively and bolused 500cc overnight. Hgb down 2pts which is a reasonable amount for postoperative dilution, and she is not tachycardic or severely distended - low suspicion for postop bleed but will hold off on starting lovenox today. Has not ambulated yet. Wound Assessment Wound/Incisions: positive Dressing dry and intact Review of Systems Status of ROS: 10 or more systems reviewed and unremarkable except as noted in history and below Exam Constitutional normal general appearance and no apparent distress HENMT normocephalic NGT in place, scant output Eyes PERRL and EOMs intact bilaterally Neck/C-Spine visual inspection normal Respiratory breath sounds equal bilaterally Cardiovascular normal heart rate noted (low grade tachycardia) and regular rhythm noted Gastrointestinal abdomen soft to palpation soft, mildly distended, periincisional ttp. Silver dressing at lower midline is CDI. Genitourinary Meyer in place, dark yellow Extremities normal to inspection Neurology no movement abnormality noted Psychiatry mental status grossly normal and oriented x3 Skin skin color normal ABX Reporting Has patient been on IV antibiotics over the past 48 hours?: Yes Impression/Plan Problem List (1) Complication, postoperative infection: Plan: 54yoF s/p laparoscopic appendectomy on 12/27/24 for perforated appendicitis and bacteroides bacteremia that failed nonoperative management with IV cipro/flagyl. Completed 12d IV abx, including 4d following source control. Readmitted with persistent ileus and suspicion for intraabdominal infection on 01/17/25. POD1 s/p laparoscopic lysis of adhesions and open ileocecectomy. Found to have RLQ phlegmon involving necrotic debris from perforated appendicitis, small and large bowel, and right adenexa. Has expected postop ileus as well as CHRISTIAN, also total body rash which is waxing and waning. 2pt hgb drop reasonable for postoperative dilution, will trend hgb tomorrow. - Pain control with scheduled toradol and IV dilaudid. (Tylenol allergy, gabapentin not tolerated, strict NPO for now) - NPO with NGT to LIWS - LR @ 125; bolus additional 1L LR today - start TPN tonight (via central line, placed for inability to obtain IV or PICC access) - continue meyer today given CHRISTIAN and marginal UOP - CBC/Chem daily - IV cipro/flagyl x4d postop given necrotic debris within phlegmon - SCDs, will start lovenox tomorrow if hgb stable - ambulate/OOBTC TID, IS Dispo: pending resolution of ileus and CHRISTIAN Marilee Connors DO, FACS General Surgeon, [facility] (2) History of bowel resection: (3) CHRISTIAN (acute kidney injury): (4) Ileus:
[2025-01-19] MEDS ORDERED: TPN (CLINIMIX E 5/15) 2,000 ML with MULTIVITAMIN 10 ML, TRACE ELEMENTS 1 ML IV SCH (19:00)
[2025-01-19] MEDS ORDERED: FAT EMULSION 20% 250 ML IV SCH (19:00)
[2025-01-19] MEDS: PPN (CLINIMIX E 4.25/5) 2,000 ML with MULTIVITAMIN 10 ML, TRACE ELEMENTS 1 ML IV SCH (19:03)
[2025-01-19] MEDS: FAT EMULSION 20% 250 ML IV SCH (19:20)
[2025-01-20] MEDS: SODIUM CHLORIDE 0.9% 500 ML IV ONE (00:22)
[2025-01-20 05:20] LABS: BASOPHILS % (AUTO) 0.1 %; EOSINOPHILS # (AUTO) 0.6 10^3/uL (0.0-0.7); EOSINOPHILS % (AUTO) 4.4 %; HCT - HEMATOCRIT 21.1 % (37.0-47.0); LYMPHOCYTES # (AUTO) 1.5 10^3/uL (1.5-3.5); LYMPHOCYTES % (AUTO) 10.4 %; MEAN CORPUSCULAR HEMOGLOBIN 29.5 pg (27.0-31.0); MEAN CORPUSCULAR HGB CONC 31.3 g/dL (32.0-36.0); MEAN CORPUSCULAR VOLUME 94.2 fL (81.0-99.0); MEAN PLATELET VOLUME 9.5 fL (7.9-10.8); MONOCYTES # (AUTO) 0.8 10^3/uL (0.0-1.0); MONOCYTES % (AUTO) 5.3 %; NEUTROPHILS # (AUTO) 11.3 10^3/uL (1.5-6.6); NEUTROPHILS % (AUTO) 79.2 %; PLT - PLATELET COUNT 211 10^3/uL (130-450); RED BLOOD COUNT 2.24 10^6/uL (4.20-5.40); RED CELL DISTRIBUTION WIDTH 14.9 % (12.0-15.0); WHITE BLOOD COUNT 14.3 x10^3/uL (4.8-10.8)
[2025-01-20 05:23] LABS: HGB - HEMOGLOBIN 6.6 g/dL (12.0-16.0)
[2025-01-20 05:38] LABS: CALCIUM 7.4 mg/dL (8.5-10.3); MAGNESIUM 1.9 mg/dL (1.7-2.3); PHOSPHORUS 2.6 mg/dL (2.5-5.0); POTASSIUM 3.8 mmol/L (3.5-4.5)
[2025-01-20 07:49] LABS: BASOPHILS % (AUTO) 0.1 %; EOSINOPHILS # (AUTO) 0.6 10^3/uL (0.0-0.7); EOSINOPHILS % (AUTO) 4.3 %; HCT - HEMATOCRIT 21.1 % (37.0-47.0); LYMPHOCYTES # (AUTO) 1.3 10^3/uL (1.5-3.5); LYMPHOCYTES % (AUTO) 9.2 %; MEAN CORPUSCULAR HEMOGLOBIN 30.4 pg (27.0-31.0); MEAN CORPUSCULAR HGB CONC 32.2 g/dL (32.0-36.0); MEAN CORPUSCULAR VOLUME 94.2 fL (81.0-99.0); MEAN PLATELET VOLUME 9.4 fL (7.9-10.8); MONOCYTES # (AUTO) 0.9 10^3/uL (0.0-1.0); NEUTROPHILS # (AUTO) 11.6 10^3/uL (1.5-6.6); NEUTROPHILS % (AUTO) 79.8 %; PLT - PLATELET COUNT 204 10^3/uL (130-450); RED BLOOD COUNT 2.24 10^6/uL (4.20-5.40); WHITE BLOOD COUNT 14.5 x10^3/uL (4.8-10.8)
[2025-01-20 07:53] LABS: HGB - HEMOGLOBIN 6.8 g/dL (12.0-16.0)
[2025-01-20 07:55] LABS: INR 1.4 (0.8-1.2); PT - PROTHROMBIN TIME 15.6 secs (9.9-12.6)
--- NOTE | 2025-01-20 11:14 | PROVIDER PROGRESS NOTE ---
Subjective General Admit Date: 01/17/25 Procedure Date: 01/18/25 Post Op Days: 2 Procedure Performed: lap BRIAN --> open ileocecectomy Other Other Information/Narrative: Soft BP with SBP into 90s and HR to 103 overnight, Hgb down to 6.8. Abdomen without progressive distension, pain about the same as yesterday, no flatus, but increased right sided ttp. No flatus, NGT has feculent output. Bolused another 500cc overnight (total of 2L yesterday). Wound Assessment Wound/Incisions: positive Dressing dry and intact Review of Systems Status of ROS: 10 or more systems reviewed and unremarkable except as noted in history and below Exam Constitutional normal general appearance and no apparent distress ill appearing HENMT normocephalic NGT in place, feculent output Eyes PERRL and EOMs intact bilaterally Neck/C-Spine visual inspection normal Respiratory breath sounds equal bilaterally Cardiovascular normal heart rate noted (low grade tachycardia) and regular rhythm noted Gastrointestinal abdomen soft to palpation and nondistended soft, mildly distended, periincisional ttp, Increased right sided ttp. Silver dressing at lower midline is CDI. 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 Continues to wax/wane. No epidermolysis noted. ABX Reporting Has patient been on IV antibiotics over the past 48 hours?: Yes Impression/Plan Problem List (1) Complication, postoperative infection: Plan: 54yoF s/p laparoscopic appendectomy on 12/27/24 for perforated appendicitis and bacteroides bacteremia that failed nonoperative management with IV cipro/flagyl. Completed 12d IV abx, including 4d following source control. Readmitted with persistent ileus and suspicion for intraabdominal infection on 01/17/25. POD2 s/p laparoscopic lysis of adhesions and open ileocecectomy. Found to have RLQ phlegmon involving necrotic debris from perforated appendicitis, small and large bowel, and right adenexa. Postop ileus continues, CHRISTIAN improved with 2L bolus yesterday (1.3 to 1.0), total body rash which is waxing and waning. Further 2pt hgb drop to 6.8 with increased right sided ttp suggests postoperative bleeding, thus far responsive to first using of PRBC, pending 2nd unit now. Optimistic that she will stabilize with 2U PRBC and holding toradol. - 2U PRBC this AM, PM CBC - Pain control with IV dilaudid. Holding toradol now in setting of bleeding. (Tylenol allergy, gabapentin not tolerated, strict NPO for now) - NPO with NGT to LIWS - LR + PPN @ 125 - continue meyer today given CHRISTIAN and bleeding - CBC/Chem daily - IV cipro/flagyl x4d postop given necrotic debris within phlegmon - SCDs, continue to hold lovenox today given bleeding - ambulate/OOBTC TID, IS - prn benadryl for rash Dispo: pending resolution of ileus, CHRISTIAN, bleeding Marilee Connors DO, FACS General Surgeon, [facility] (2) History of bowel resection: (3) CHRISTIAN (acute kidney injury): (4) Ileus: (5) Post-op bleeding:
[2025-01-20 12:36] LABS: BASOPHILS % (AUTO) 0.1 %; EOSINOPHILS # (AUTO) 0.6 10^3/uL (0.0-0.7); EOSINOPHILS % (AUTO) 4.3 %; HCT - HEMATOCRIT 24.1 % (37.0-47.0); HGB - HEMOGLOBIN 7.6 g/dL (12.0-16.0); LYMPHOCYTES # (AUTO) 1.8 10^3/uL (1.5-3.5); LYMPHOCYTES % (AUTO) 12.4 %; MEAN CORPUSCULAR HEMOGLOBIN 29.5 pg (27.0-31.0); MEAN CORPUSCULAR HGB CONC 31.5 g/dL (32.0-36.0); MEAN CORPUSCULAR VOLUME 93.4 fL (81.0-99.0); MEAN PLATELET VOLUME 10.2 fL (7.9-10.8); MONOCYTES # (AUTO) 0.8 10^3/uL (0.0-1.0); MONOCYTES % (AUTO) 5.2 %; NEUTROPHILS # (AUTO) 11.3 10^3/uL (1.5-6.6); NEUTROPHILS % (AUTO) 77.5 %; PLT - PLATELET COUNT 208 10^3/uL (130-450); RED BLOOD COUNT 2.58 10^6/uL (4.20-5.40); RED CELL DISTRIBUTION WIDTH 14.9 % (12.0-15.0); WHITE BLOOD COUNT 14.6 x10^3/uL (4.8-10.8)
[2025-01-20 16:41] LABS: HCT - HEMATOCRIT 27.1 % (37.0-47.0); HGB - HEMOGLOBIN 8.7 g/dL (12.0-16.0)
[2025-01-21 06:49] LABS: BASOPHILS % (AUTO) 0.1 %; EOSINOPHILS # (AUTO) 0.8 10^3/uL (0.0-0.7); HCT - HEMATOCRIT 28.5 % (37.0-47.0); HGB - HEMOGLOBIN 9.2 g/dL (12.0-16.0); LYMPHOCYTES % (AUTO) 12.5 %; MEAN CORPUSCULAR HEMOGLOBIN 29.3 pg (27.0-31.0); MEAN CORPUSCULAR HGB CONC 32.3 g/dL (32.0-36.0); MEAN CORPUSCULAR VOLUME 90.8 fL (81.0-99.0); MEAN PLATELET VOLUME 9.8 fL (7.9-10.8); MONOCYTES # (AUTO) 0.9 10^3/uL (0.0-1.0); MONOCYTES % (AUTO) 5.4 %; NEUTROPHILS % (AUTO) 76.6 %; PLT - PLATELET COUNT 212 10^3/uL (130-450); RED BLOOD COUNT 3.14 10^6/uL (4.20-5.40); RED CELL DISTRIBUTION WIDTH 15.1 % (12.0-15.0); WHITE BLOOD COUNT 15.7 x10^3/uL (4.8-10.8)
[2025-01-21 07:09] LABS: CALCIUM 7.5 mg/dL (8.5-10.3); CREATININE 0.8 mg/dL (0.6-1.3); MAGNESIUM 1.8 mg/dL (1.7-2.3); PHOSPHORUS 3.2 mg/dL (2.5-5.0); POTASSIUM 3.5 mmol/L (3.5-4.5)
--- NOTE | 2025-01-21 08:00 | PROVIDER PROGRESS NOTE ---
Subjective General Admit Date: 01/17/25 Procedure Date: 01/18/25 Post Op Days: 3 Procedure Performed: lap BRIAN --> open ileocecectomy Other Other Information/Narrative: 2U PRBC yesterday with appropriate hgb response and much improved BP, also with increased UOP, urine now light yellow. Abdominal pain slightly worse having to hold toradol. Still mild nausea but NGT output feculent --> gastric colored, passing flatus and had a BM this AM. Wound Assessment Wound/Incisions: positive Dressing dry and intact Review of Systems Status of ROS: 10 or more systems reviewed and unremarkable except as noted in history and below Exam Constitutional normal general appearance and no apparent distress ill appearing HENMT normocephalic NGT in place, gastric colored output Eyes PERRL and EOMs intact bilaterally Neck/C-Spine visual inspection normal Respiratory breath sounds equal bilaterally Cardiovascular normal heart rate noted (low grade tachycardia) and regular rhythm noted Gastrointestinal abdomen soft to palpation and nondistended soft, mildly distended, periincisional ttp, Increased right sided ttp. Silver dressing at lower midline is CDI. 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 No epidermolysis noted. Anasarcic overall, but L>R arm swelling with some petichiae on left arm. ABX Reporting Has patient been on IV antibiotics over the past 48 hours?: Yes Impression/Plan Problem List (1) Complication, postoperative infection: Plan: 54yoF s/p laparoscopic appendectomy on 12/27/24 for perforated appendicitis and bacteroides bacteremia that failed nonoperative management with IV cipro/flagyl. Completed 12d IV abx, including 4d following source control. Readmitted with persistent ileus and suspicion for intraabdominal infection on 01/17/25. POD3 s/p laparoscopic lysis of adhesions and open ileocecectomy. Found to have RLQ phlegmon involving necrotic debris from perforated appendicitis, small and large bowel, and right adenexa. Appropriate response to 2U PRBC yesterday, hgb now 9, SBP 120-130s, UOP sig increased and Cr down to 0.8. Doubt ongoing bleeding. Early signs of resolving ileus with flatus and first BM this AM, still nauseated. - Repeat CBC and BMP this afternoon - if hgb stable will start ppx lovenox, if Cr stable will dc meyer. - LUE DVT US given disproportionate swelling and petichiae - blood cultures for low grade fevers overnight (on abx, more likely 2/2 blood transfusion/intraabdominal hematoma) - Pain control with IV dilaudid. Continue holding toradol until hgb stable on lovenox, then will resume. (Tylenol allergy, gabapentin not tolerated, strict NPO for now) - NGT removed on rounds. Remain NPO for now given nausea still. - LR + PPN @ 125 - continue meyer for now - CBC/Chem daily - IV cipro/flagyl x4d postop given necrotic debris within phlegmon - SCDs, continue to hold lovenox for now - ambulate/OOBTC TID, IS - prn benadryl for rash Dispo: pending resolution of ileus, CHRISTIAN, bleeding Marilee Connors DO, FACS General Surgeon, [facility] (2) History of bowel resection: (3) CHRISTIAN (acute kidney injury): (4) Ileus: (5) Post-op bleeding:
--- NOTE | 2025-01-21 11:02 | Ultrasound Report ---
PROCEDURE: US Venous Duplex LT INDICATIONS: Left arm swelling, R/o LUE DVT TECHNIQUE: Real-time imaging, as well as color and pulse Doppler interrogation, were performed of the upper extr emity deep veins COMPARISON: None. FINDINGS AND IMPRESSION: No deep venous thrombus is identified. Nonocclusive superficial thrombus is seen in the proximal radi al vein. Reviewed by: Sharif Henry MD on 01/21/2025 11:00 AM PDT Approved by: Sharif Henry MD on 01/21/2025 11:00 AM PDT Station ID: [id number]
[2025-01-21] MEDS: HYDROmorphone 0.5 MG/0.5 ML SYRINGE IVP PRN (11:27)
[2025-01-21 16:10] LABS: HCT - HEMATOCRIT 27.7 % (37.0-47.0); HGB - HEMOGLOBIN 8.9 g/dL (12.0-16.0); MEAN CORPUSCULAR HEMOGLOBIN 28.9 pg (27.0-31.0); MEAN CORPUSCULAR HGB CONC 32.1 g/dL (32.0-36.0); MEAN CORPUSCULAR VOLUME 89.9 fL (81.0-99.0); MEAN PLATELET VOLUME 9.7 fL (7.9-10.8); RED BLOOD COUNT 3.08 10^6/uL (4.20-5.40); RED CELL DISTRIBUTION WIDTH 15.1 % (12.0-15.0); WHITE BLOOD COUNT 12.9 x10^3/uL (4.8-10.8)
[2025-01-21 16:23] LABS: CALCIUM 7.7 mg/dL (8.5-10.3); CREATININE 0.8 mg/dL (0.6-1.3); POTASSIUM 3.4 mmol/L (3.5-4.5)
[2025-01-21] MEDS: ENOXAPARIN 40 MG/0.4 ML SYRINGE SUBQ SCH (18:03)
[2025-01-21] MEDS: POTASSIUM CHLOR 10 MEQ/100 ML 10 MEQ/100 ML BAG IV SCH (19:03)
[2025-01-21] MEDS: POTASSIUM CHLOR 20 MEQ/100 ML 20 MEQ/100 ML BAG IV ONE (19:03)
[2025-01-22 05:59] LABS: BASOPHILS % (AUTO) 0.2 %; EOSINOPHILS # (AUTO) 0.9 10^3/uL (0.0-0.7); EOSINOPHILS % (AUTO) 8.8 %; HCT - HEMATOCRIT 25.5 % (37.0-47.0); HGB - HEMOGLOBIN 8.5 g/dL (12.0-16.0); LYMPHOCYTES # (AUTO) 2.2 10^3/uL (1.5-3.5); MEAN CORPUSCULAR HEMOGLOBIN 30.1 pg (27.0-31.0); MEAN CORPUSCULAR HGB CONC 33.3 g/dL (32.0-36.0); MEAN CORPUSCULAR VOLUME 90.4 fL (81.0-99.0); MEAN PLATELET VOLUME 9.6 fL (7.9-10.8); MONOCYTES # (AUTO) 0.8 10^3/uL (0.0-1.0); MONOCYTES % (AUTO) 7.4 %; NEUTROPHILS # (AUTO) 6.5 10^3/uL (1.5-6.6); NEUTROPHILS % (AUTO) 62.1 %; PLT - PLATELET COUNT 213 10^3/uL (130-450); RED BLOOD COUNT 2.82 10^6/uL (4.20-5.40); WHITE BLOOD COUNT 10.5 x10^3/uL (4.8-10.8)
[2025-01-22 06:10] LABS: MAGNESIUM 1.9 mg/dL (1.7-2.3)
[2025-01-22 06:16] LABS: CALCIUM 7.7 mg/dL (8.5-10.3); CREATININE 0.8 mg/dL (0.6-1.3); PHOSPHORUS 3.6 mg/dL (2.5-5.0); POTASSIUM 3.5 mmol/L (3.5-4.5)
[2025-01-22] MEDS: POTASSIUM CHLOR 20 MEQ/100 ML 20 MEQ/100 ML BAG IV ONE (07:54)
[2025-01-22] MEDS: FUROSEMIDE 20 MG/2 ML VIAL IVP ONE (07:54)
[2025-01-22] MEDS: POTASSIUM CHLOR 10 MEQ/100 ML 10 MEQ/100 ML BAG IV SCH (08:09)
--- NOTE | 2025-01-22 22:18 | PROVIDER PROGRESS NOTE ---
Subjective General Admit Date: 01/17/25 Procedure Date: 01/18/25 Post Op Days: 4 Procedure Performed: lap BRIAN --> open ileocecectomy Other Other Information/Narrative: NGT out yesterday, continues to pass flatus, tolerating apple juice only, but no return of nausea/feels better since NGT out. Walking to bathroom not in hallways. Meyer out yesterday evening and voiding well. Wound Assessment Wound/Incisions: positive Dressing dry and intact Review of Systems Status of ROS: 10 or more systems reviewed and unremarkable except as noted in history and below Exam Constitutional normal general appearance and no apparent distress ill appearing HENMT normocephalic Eyes PERRL and EOMs intact bilaterally Neck/C-Spine visual inspection normal Respiratory breath sounds equal bilaterally Cardiovascular normal heart rate noted (low grade tachycardia) and regular rhythm noted Gastrointestinal abdomen soft to palpation and nondistended soft, mildly distended, periincisional ttp, improved right sided ttp. Silver dressing off - stapled incision at lower midline is CDI. Extremities normal to inspection Neurology no movement abnormality noted Psychiatry mental status grossly normal and oriented x3 Skin skin color normal Rash gone on face, improved on limbs, some petichiae. No epidermolysis noted. Improved Anasarcic overall, . Impression/Plan Problem List (1) Complication, postoperative infection: Plan: 54yoF s/p laparoscopic appendectomy on 12/27/24 for perforated appendicitis and bacteroides bacteremia that failed nonoperative management with IV cipro/flagyl. Completed 12d IV abx, including 4d following source control. Readmitted with persistent ileus and suspicion for intraabdominal infection on 01/17/25. POD4 s/p laparoscopic lysis of adhesions and open ileocecectomy on 01/18. Found to have RLQ phlegmon involving necrotic debris from perforated appendicitis, small and large bowel, and right adenexa. Postop bleed has stabilized; CHRISTIAN resolved, HD normal with some hypertension now. Early signs of resolving ileus . LUE SVT - compression and elevation. WBC normalized, no growth from 01/21 blood cx. - Pain control with IV dilaudid. Resume toradol tomorrow. (Tylenol allergy, gabapentin not tolerated, strict NPO for now) - Clear liquids, stopped LR, continue PPN - meyer removed yesterday evening, lasix 20mg today - CBC/Chem daily - dc IV cipro/flagyl - x4d postop - SCDs, lovenox ppx resumed yesterday evening - ambulate/OOBTC TID, IS - prn benadryl for rash Dispo: pending resolution of ileus Marilee Connors DO, FACS General Surgeon, [facility] ([facility]) History of bowel resection: (3) CHRISTIAN (acute kidney injury): (4) Ileus: (5) Post-op bleeding:
[2025-01-23 06:21] LABS: HCT - HEMATOCRIT 26.1 % (37.0-47.0); HGB - HEMOGLOBIN 8.5 g/dL (12.0-16.0); MEAN CORPUSCULAR HEMOGLOBIN 29.5 pg (27.0-31.0); MEAN CORPUSCULAR HGB CONC 32.6 g/dL (32.0-36.0); MEAN CORPUSCULAR VOLUME 90.6 fL (81.0-99.0); MEAN PLATELET VOLUME 9.8 fL (7.9-10.8); RED BLOOD COUNT 2.88 10^6/uL (4.20-5.40); RED CELL DISTRIBUTION WIDTH 14.7 % (12.0-15.0); WHITE BLOOD COUNT 11.5 x10^3/uL (4.8-10.8)
[2025-01-23 06:38] LABS: CREATININE 0.8 mg/dL (0.6-1.3); MAGNESIUM 1.9 mg/dL (1.7-2.3); PHOSPHORUS 4.2 mg/dL (2.5-5.0); POTASSIUM 3.6 mmol/L (3.5-4.5)
[2025-01-23] MEDS: KETOROLAC 15 MG/ML VIAL IVP SCH (10:38)
--- NOTE | 2025-01-23 14:17 | PROVIDER PROGRESS NOTE ---
Subjective General Admit Date: 01/17/25 Procedure Date: 01/18/25 Post Op Days: 5 Procedure Performed: lap BRIAN --> open ileocecectomy Other Other Information/Narrative: looking and feeling MUCH better. Swelling significantly improved, rash improved, wanting to try regular diet. Hgb stable with addition of ppx lovenox. Creatinine stable/normal. Wound Assessment Wound/Incisions: positive Healing well, No drainage and Other (trinh in place); negative Erythema Review of Systems Status of ROS: 10 or more systems reviewed and unremarkable except as noted in history and below Exam Constitutional normal general appearance and no apparent distress HENMT normocephalic NGT in place, gastric colored output Eyes PERRL and EOMs intact bilaterally Neck/C-Spine visual inspection normal Respiratory breath sounds equal bilaterally Cardiovascular normal heart rate noted (low grade tachycardia) and regular rhythm noted Gastrointestinal abdomen soft to palpation and nondistended mild periincisional ttp, minimal right sided ttp. Silver dressing off - stapled incision at lower midline is CDI. Extremities normal to inspection Neurology no movement abnormality noted Psychiatry mental status grossly normal and oriented x3 Skin skin color normal Rash gone on face, improved on limbs, less petichiae. No epidermolysis noted. much Improved Anasarcic overall, . Impression/Plan Problem List (1) Complication, postoperative infection: Plan: 54yoF s/p laparoscopic appendectomy on 12/27/24 for perforated appendicitis and bacteroides bacteremia that failed nonoperative management with IV cipro/flagyl. Completed 12d IV abx, including 4d following source control. Readmitted with persistent ileus and suspicion for intraabdominal infection on 01/17/25. POD5 s/p laparoscopic lysis of adhesions and open ileocecectomy on 01/18. Found to have RLQ phlegmon involving necrotic debris from perforated appendicitis, small and large bowel, and right adenexa. Completed 4d postoperative abx. Postop bleed has stabilized; CHRISTIAN resolved, HD normal with some hypertension now. Ileus is improving. LUE SVT - compression and elevation. No growth from 01/21 blood cx. - Pain control with IV dilaudid. Resume scheduled toradol today. PO meds tomorrow if tolerating regular diet (Tylenol allergy, gabapentin not tolerated, strict NPO for now) - Trial regular diet today, continue PPN for now - CBC/Chem daily - SCDs, lovenox ppx - ambulate/OOBTC TID, IS - prn benadryl for rash Dispo: pending regular diet and PO pain control Marilee Connors DO, [facility] General Surgeon, [facility] (2) History of bowel resection: (3) CHRISTIAN (acute kidney injury): (4) Ileus: (5) Post-op bleeding:
[2025-01-24 04:37] LABS: HCT - HEMATOCRIT 25.2 % (37.0-47.0); HGB - HEMOGLOBIN 8.1 g/dL (12.0-16.0); MEAN CORPUSCULAR HEMOGLOBIN 29.1 pg (27.0-31.0); MEAN CORPUSCULAR HGB CONC 32.1 g/dL (32.0-36.0); MEAN CORPUSCULAR VOLUME 90.6 fL (81.0-99.0); MEAN PLATELET VOLUME 9.1 fL (7.9-10.8); RED BLOOD COUNT 2.78 10^6/uL (4.20-5.40); RED CELL DISTRIBUTION WIDTH 14.6 % (12.0-15.0); WHITE BLOOD COUNT 10.6 x10^3/uL (4.8-10.8)
[2025-01-24 04:54] LABS: MAGNESIUM 2.1 mg/dL (1.7-2.3)
[2025-01-24 05:00] LABS: CALCIUM 8.2 mg/dL (8.5-10.3); CREATININE 0.9 mg/dL (0.6-1.3); PHOSPHORUS 3.8 mg/dL (2.5-5.0); POTASSIUM 3.7 mmol/L (3.5-4.5)
[2025-01-24] MEDS: POTASSIUM CHLORIDE 20 MEQ TABLET PO ONE (07:58)
--- NOTE | 2025-01-24 14:58 | PROVIDER PROGRESS NOTE ---
Subjective General Admit Date: 01/17/25 Procedure Date: 01/18/25 Post Op Days: 6 Procedure Performed: lap BRIAN --> open ileocecectomy Other Other Information/Narrative: Tolerating regular diet (50-75% of meals) though she is premedicating with iv dilaudid and compazine to do so. She feels up to trying pills today. PPN was stopped last night due to pharmacy shortage. Wound Assessment Wound/Incisions: positive Healing well, No drainage and Other (trinh in place); negative Erythema Review of Systems Status of ROS: 10 or more systems reviewed and unremarkable except as noted in history and below Exam Constitutional normal general appearance and no apparent distress HENMT normocephalic NGT in place, gastric colored output Eyes PERRL and EOMs intact bilaterally Neck/C-Spine visual inspection normal Respiratory breath sounds equal bilaterally Cardiovascular normal heart rate noted (low grade tachycardia) and regular rhythm noted Gastrointestinal abdomen soft to palpation and nondistended Benign exam. stapled incision at lower midline is CDI. Extremities normal to inspection Neurology no movement abnormality noted Psychiatry mental status grossly normal and oriented x3 Skin skin color normal Minimal residual rash on extremities. ABX Reporting Has patient been on IV antibiotics over the past 48 hours?: No Impression/Plan Problem List (1) Complication, postoperative infection: Plan: 54yoF s/p laparoscopic appendectomy on 12/27/24 for perforated appendicitis and bacteroides bacteremia that failed nonoperative management with IV cipro/flagyl. Completed 12d IV abx, including 4d following source control. Readmitted with persistent ileus and suspicion for intraabdominal infection on 01/17/25. POD6 s/p laparoscopic lysis of adhesions and open ileocecectomy on 01/18. Found to have RLQ phlegmon involving necrotic debris from perforated appendicitis, small and large bowel, and right adenexa. Completed 4d postoperative abx. HD normal with improved hypertension since diuresis. Ileus is resolving. LUE SVT - swelling is improved, on NSAIDs. - Trial PO Pain control: PO motrin scheduled, PRN PO oxycodone, IV dilaudid only for breakthrough pain. - Zofran ODT before IV compazine - change protonix and benadryl to PO also - Regular diet, dc PPN - CBC/Chem daily - SCDs, lovenox ppx - ambulate/OOBTC TID, IS Dispo: Anticipate dc home in next 48hrs, pending PO pain control Marilee Connors DO, FACS General Surgeon, [facility] (2) History of bowel resection: (3) CHRISTIAN (acute kidney injury): (4) Ileus: (5) Post-op bleeding:
[2025-01-24] MEDS: IBUPROFEN 800 MG TABLET PO SCH (15:12)
[2025-01-24] MEDS: diphenhydrAMINE 25 MG CAPSULE PO PRN (16:44)
[2025-01-24] MEDS: ONDANSETRON ODT 4 MG TABLET TL PRN (16:45)
[2025-01-24] MEDS: oxyCODONE 5 MG TABLET PO PRN (19:21)
[2025-01-25 05:02] LABS: HCT - HEMATOCRIT 23.8 % (37.0-47.0); HGB - HEMOGLOBIN 7.6 g/dL (12.0-16.0); MEAN CORPUSCULAR HEMOGLOBIN 29.5 pg (27.0-31.0); MEAN CORPUSCULAR HGB CONC 31.9 g/dL (32.0-36.0); MEAN CORPUSCULAR VOLUME 92.2 fL (81.0-99.0); MEAN PLATELET VOLUME 9.5 fL (7.9-10.8); RED BLOOD COUNT 2.58 10^6/uL (4.20-5.40); RED CELL DISTRIBUTION WIDTH 14.7 % (12.0-15.0); WHITE BLOOD COUNT 11.9 x10^3/uL (4.8-10.8)
[2025-01-25 05:15] LABS: MAGNESIUM 2.1 mg/dL (1.7-2.3)
[2025-01-25 05:21] LABS: PHOSPHORUS 3.3 mg/dL (2.5-5.0); POTASSIUM 3.9 mmol/L (3.5-4.5)
[2025-01-25] MEDS: PANTOPRAZOLE 40 MG TABLET PO SCH (06:16)
[2025-01-25 13:18] VITALS: BP 155/88; TEMP 97.7; O2SAT 98
[2025-01-25] MEDS: oxyCODONE 5 MG TABLET PO PRN (14:53)
--- NOTE | 2025-01-27 07:37 | Discharge Summary ---
Discharge Summary Admit Date: 01/17/25 Discharge Date: 01/25/25 Discharging Provider: Marilee Connors DO Code Status: Attempt Resuscitation DIAGNOSES Admission Diagnoses: Postoperative infection Discharge Diagnoses with Status of Each Condition: Postoperative infection - resolved CHRISTIAN - resolved Ileus - resolved Postoperative bleeding - resolved Superficial venous thrombosis of left upper extremity - active HPI History of Present Illness: 54F s/p recent hospitalization (12/20-) for perforated appendicitis with bacteremia, that failed nonoperative management and ultimately underwent lap appy on 12/27. Last week she was not doing well, with diarrhea and subjective f/c and poor PO intake. C diff testing was negative, and a CT did not have actionable findings. She returned to clinic today looking poorly, reporting near syncopal event at home in shower this AM, and continued/minimal poor PO intake at home. The diarrhea and f/c have improved. She has developed a total body rash. I sent her from the clinic to ED for labs/IVF/IV benadryl. In the ER she received 2L IVF after labs confirmed hypovolemia. She was still having significant abdominal cramping after trial of bentyl. I decided to rescan her with IV/PO contrast - findings suggest a piece of retained appendix within the abdomen. CONSULTS | PROCEDURES Consultations: none Procedures: Diagnostic laparoscopy, laparoscopic lysis of adhesions (extended), open ileocecectomy - 01/18/25 HOSPITAL COURSE Hospital Course: The patient was admitted with persistent postoperative ileus and infection related to retained appendix, she was started on cipro and flagyl IV and resuscitated with IV fluid. She was also treated with benadryl for a reactive total body rash. She was taken to the OR the following morning for diagnostic laparoscopy, laparoscopic lysis of adhesions (extended), open ileocecectomy. Rather than a single large piece of retained appendix, what was found in the abdomen was a phlegmon of large and small bowel, right adenexal structures, and multiple small portions of necrotic and infectious debris. IV cipro and flagyl were continued for 4 days postoperatively and her WBC normalized. TPN was started on POD0 and continued until her bowel function returned. On POD2 she was transfused 2 units of PRBC for postoperative bleeding with appropriate response. On POD3 her NGT and meyer were removed, and prophylactic lovenox was started. She was also found to have a LUE SVT on US obtained for disproportionate swelling - this was treated with NSAIDS, compression and elevation. On POD4 she started clear liquids as her bowel function was returning. By POD6 she was tolerating regular diet and oral pain control; her PPN was stopped. Her rash had resolved. She was discharged to home in much improved condition on POD7. ALLERGIES Allergies Allergy/AdvReac Type Severity Reaction Status Date / Time acetaminophen (From Tylenol) Allergy Severe Pancreatiti Verified 01/17/25 13:42 s amoxicillin (From Augmentin) Allergy Mild Nausea Verified 01/17/25 13:42 clavulanic acid (From Allergy Mild Nausea Verified 01/17/25 13:42 Augmentin) hydrocodone Allergy Mild Hives Verified 01/17/25 13:42 midazolam (From Versed) Allergy Mild Unknown Verified 01/17/25 13:42 morphine Allergy Mild Hallucinati Verified 01/17/25 13:42 ons sulfamethoxazole (From Allergy Mild Unknown Verified 01/17/25 13:42 Bactrim) tramadol Allergy Mild Hallucinati Verified 01/17/25 13:42 ons trimethoprim (From Bactrim) Allergy Mild Unknown Verified 01/17/25 13:42 MEDICATIONS Ambulatory Orders Medication Instructions Recorded Confirmed acyclovir 400 mg tablet 400 mg PO DAILY 12/20/24 01/18/25 cetirizine 10 mg capsule (All Day 10 mg PO BID PRN allergy symptoms 12/20/24 01/18/25 Allergy (cetirizine)) lisinopril 20 1 tab PO DAILY 12/20/24 01/18/25 mg-hydrochlorothiazide 25 mg tablet ondansetron 4 mg disintegrating 4 mg translingual Q6HR PRN Nausea 12/31/24 01/18/25 tablet / Vomiting #10 tabs ondansetron 4 mg disintegrating 4 mg translingual Q4HR PRN Nausea 01/25/25 tablet / Vomiting #30 tabs oxycodone 5 mg tablet 10 mg (2 x 5 mg) PO Q4HR PRN 01/25/25 Moderate Pain (Level 4-6) #30 tabs PHYSICAL EXAM AT DISCHARGE General Appearance: positive No acute distress and Alert Eyes Bilateral: positive Normal inspection ENT: positive ENT inspection nml Neck: positive Nml inspection Respiratory: positive Chest non-tender and No respiratory distress Cardiovascular: positive Regular rate & rhythm Peripheral Pulses: positive 2+ Abdomen: positive Non-tender and No distention Rectal: positive Other (incisions CDI) Skin: positive Color nml and No rash Extremities: positive Non-tender and Full ROM Neurologic/Psychiatric: positive Oriented x3 LABS 01/25/25 04:55 01/25/25 04:55 DIAGNOSTIC IMAGING Diagnostic Imaging Results: Read contemporaneously Diagnostic Imaging Results Comments: PROCEDURE: CT Abdomen/Pelvis W INDICATIONS: cont pain s/p perf appendicitis CONTRAST: 100 ML OMNI TECHNIQUE: After the administration of intravenous contrast, a CT scan of the abdomen and pelvis was performed. Images were recorded and evaluated at appropriate window settings. Reformats: coronal and sagittal. For radiation dose reduction, the following was used: automated exposure control, adjustment of mA and/or kV according to patient size. COMPARISON: 01/11/2025 FINDINGS: Image quality: Diagnostic. Lower chest: No pleural effusion or consolidation. Liver: No solid mass. Gallbladder: No radiopaque stones or wall thickening. Biliary tree: No intrahepatic or extrahepatic dilation, accounting for age. Spleen: No splenomegaly. Pancreas: No pancreatic ductal dilation. Adrenals: No adrenal nodule. Kidneys and ureters: No hydronephrosis. No renal cystic lesion which requires follow up. No solid mass. Stomach, bowel and peritoneum: No significant change to right lower quadrant, calcification containing small phlegmon along the right psoas muscle. Moderate pericecal inflammation. Mildly diminished compared to prior. Several anterior small bowel loops remains slightly dilated and demonstrate air-fluid levels. The stomach is decompressed. There is mild persistent inflammation and a decompressed bowel loop coursing from the left upper to the right lower quadrant as well as mildly inflamed terminal ileum. Colon is unremarkable. No free air or significant free pelvic fluid. Lymph nodes: No central or retroperitoneal adenopathy. Vessels: Normal caliber abdominal aorta, IVC, and portal vein. Patent portal vein. PELVIS Reproductive organs: Hysterectomy. Bladder: Decompressed urinary bladder. Pelvic lymph nodes: No pelvic adenopathy by size criteria. Bones: No aggressive osseous abnormality. Other: In the infraumbilical anterior abdominal wall at the midline, there are postsurgical changes including a tiny fluid collection with air. IMPRESSION: Persistent right lower quadrant inflammation involving a few small bowel loops and what may be residual appendix tissue containing appendicolith. No percutaneously drainable abscess or significant free fluid. Inflammation is likely causing ileus or partial obstruction. No other significant changes. Reviewed by: Kristie Barajas MD on 01/17/2025 7:08 PM PDT FOLLOW UP Follow Up: Dr. Connors 2 weeks TIME SPENT Time Spent in Discharge (Minutes): 30 Discharge Plan Discharge Patient Disposition: 01 Home, Self Care Condition: Stable Medically Cleared Date:: 01/25/25 Prescriptions: New ondansetron 4 mg Tablet,Disintegrating 4 mg translingual Q4HR PRN (Reason: Nausea / Vomiting) Qty: 30 0RF oxycodone 5 mg Tablet 10 mg PO Q4HR PRN (Reason: Moderate Pain (Level 4-6)) Qty: 30 0RF Continued acyclovir 400 mg tablet 400 mg PO DAILY lisinopril-hydrochlorothiazide 20-25 mg tablet 1 tab PO DAILY All Day Allergy (cetirizine) 10 mg capsule 10 mg PO BID PRN (Reason: allergy symptoms) ondansetron 4 mg Tablet,Disintegrating 4 mg translingual Q6HR PRN (Reason: Nausea / Vomiting) Qty: 10 0RF Activity Restrictions/Additional Instructions: DIET * You may resume your normal diet if there is no nausea or vomiting. * If nausea or vomiting occurs, don't eat or drink anything for one hour. Then start drinking small amounts of clear liquids. Later, add crackers, gradually building up to your usual diet. ACTIVITY INSTRUCTIONS * No lifting more than 20 pounds for 4-6 weeks after surgery * May shower normally DRESSING CARE * Using supportive garments to reduce surgical site motion will reduce pain * Eduardo to be removed in clinic on 01/31/25 DISCHARGE INSTRUCTIONS * Please call the General Surgery Clinic / Dr. Connors's office ([phone]) for any questions or signs of bleeding or infection (redness or drainage at incision, worsening pain/nausea/vomiting/fever). * Go to the Emergency Room after hours for severe symptoms. MEDICATIONS * Use Motrin (ibuprofen) on a scheduled basis for the first several days, then on as "as needed" basis as pain decreases. * Use Oxycodone (a narcotic) for breakthrough pain. Do not drive while taking Oxycodone. * Oxycodone will call cause constipation - drink plenty of water, and use [id number] Miralax twice a day as needed. * Use zodfran ODT for nausea as needed * Use Omeprazole daily while taking Motrin, to protect the stomach lining * Use Benadryl as needed for rash ANESTHESIA PRECAUTIONS * Anesthesia and medications given during surgery remain in your body up to 24 hours. This may slow reaction time and/or decrease coordination. FOR THE NEXT 24 HOURS: * Have a responsible person with you * Avoid any activity that requires you to be alert and coordinated * DO NOT DRIVE a motor vehicle for 24 hours or as long as you are taking opioid pain medication * Do not drink alcoholic beverages * Do not smoke unattended Patient Date Escort Date RN Date Diet: Regular Print Language: Qatari Patient Instructions: Surgery Anesthesia After Stand Alone Forms: PCP List Follow-up Care: Cheng Astorga MD [Provider Admit Priv/Credential] - 01/28/25 10:15 am Marilee Connors DO [Provider Admit Priv/Credential] - 02/08/25 2:45 pm
== END 2025-01-25 15:26 | disposition home or self-care (01) | DRG 856 ==
LOC: ED 13:38 → MS3 20:08 → MS2 01-23 08:29
PROVIDERS: ADMIT Surgery; ATTEND Surgery